=== PATIENT | female | born 1985 | race Caucasian/White ===

== ENCOUNTER 2021-09-20 09:24 | Inpatient (IN) | payer MEDICAID, SELFPAY ==
--- NOTE | 2021-09-17 07:18 | PCM.HP.BLA ---
History and Physical Date of Admission: 09/20/21 HPI: The patient is a 35 year old female presenting for pre-operative visit. She is scheduled for , for 09/20/21 . Procedure discussed along with risks, benefits and complications. Other alternatives discussed for management. Consent form signed? Yes. ? ? PAST MEDICAL HISTORY PAST MEDICAL HISTORY Diagnosis Date ? Anemia ? ? Asthma ? ? breast lumps ? ? cause by horse accident ? History of blood transfusion ? ? depression ? ? ? PAST SURGICAL HISTORY PAST SURGICAL HISTORY Procedure Laterality Date ? DELIVERY ONLY ? ? ? PAST SURGICAL HISTORY OF ? ? ? right knee x2 ? PAST SURGICAL HISTORY OF ? ? ? wisdom teeth ? PAST SURGICAL HISTORY OF ? ? ? ectopic (right) ? PAST SURGICAL HISTORY OF ? 07/03/2020 ? 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 ? ? CURRENT MEDICATIONS Current Outpatient Medications Medication Sig Dispense Refill ? Wnzkbppq-Ec-Osf-Fe-FA ( VITAMIN) tab Take 1 tablet by mouth. ? ? ? albuterol HFA (PROVENTIL HFA, VENTOLIN HFA) 90 mcg/actuation inhaler Inhale 2 Puffs as instructed. ? ? ? No current facility-administered medications for this visit. ? ? ALLERGIES: Aspirin, Morphine, Contact Metal Agent, and Macrobid [Nitrofurantoin Monohyd/M-Cryst] ? PERSONAL HISTORY: SOCIAL HISTORY Social History ? Tobacco Use ? Smoking status: Never Smoker ? Smokeless tobacco: Never Used Vaping Use ? Vaping Use: Never used Substance Use Topics ? Alcohol use: Not Currently ? Drug use: Never ? FAMILY HISTORY: FAMILY HISTORY FAMILY HISTORY Problem Relation Age of Onset ? other (brain tumor) Mother ? ? Hypertension Mother ? ? Diabetes Father ? ? No Known Problems Sister ? ? No Known Problems Sister ? ? No Known Problems Sister ? ? No Known Problems Sister ? ? No Known Problems Sister ? ? other (down syndrome) Sister ? ? No Known Problems Brother ? ? No Known Problems Brother ? ? Heart Maternal Grandmother ? ? Aneurysm Maternal Grandfather ? ? other (brain tumor and lung tumor) Maternal Grandfather ? ? No Known Problems Paternal Grandmother ? ? Heart Attack Paternal Grandfather ? ? other (amperforated anus) Son ? ? No Known Problems Son ? ? No Known Problems Son ? ? No Known Problems Son ? ? No Known Problems Daughter ? ? ? REVIEW OF SYMPTOMS: GENERAL: denies fevers or chills ENDOCRINOLOGY: has not been on steroids Cardiology : denies palpitations or chest pain Respiratory: denies SOB, has had mild cough for several weeks, improving, nonproductive Hematology: denies history of prolonged bleeding or easy bruising or VTE Allergy: Denies history of personal or family history of allergy to anesthesia ? PHYSICAL EXAMINATION: ? VITALS: Last menstrual period 12/29/2020. ? GENERAL: The patient is well nourished, well hydrated in no acute distress. , The patient is oriented to time, place, and person. NECK: Supple. No lynphadenopathy, normal thyroid, no thyromegaly. LUNGS: Clear to auscultation bilaterally. no wheezes, rhonchi or rales HEART: Regular rate and rhythm, Normal heart sounds and No murmurs or gallops ? IMPRESSION: Estimated Date of Delivery: 10/05/21 35 YOF w/ previous c/s nad previous vesico-cervical and vesicovaginal repari after last . ? PLAN: The risks/benefits/alternatives and personal involved for the planned repeat c/s were reviewed with the patient. Her questions were answered to her satisfaction and she desires to proceed. Consent was signed. I reviewed with her postop instructions and expectations.Proceeding at 37-38 weeks due to h/o rapid labor, previous repair of bladder injury to decrease risk of recurrent uterine rupture/bladder injury. We disucssed risks of early term delivery vs continuing and she desires to proceed. ? ? I have reviewed and updated past medical and surgical history, medications and allergies This H&P was completed in my office on 09/17/21 Assessment & Plan Assessment/Plan (1) 38 weeks gestation of : (2) High risk multigravida in third trimester: (3) Previous delivery affecting , antepartum: (4) with poor reproductive history in third trimester: (5) Advanced maternal age during in third trimester: (6) Grand multipara in labor in third trimester: (7) Maternal obesity syndrome in third trimester: (8) BMI 40.0-44.9, adult:
[2021-09-20] VITALS (13 sets, daily range): BP systolic 115–143; BP diastolic 53–87; PULSE 58–104; RESP 13–20; TEMP 36.1–36.9; O2SAT 98–100; BMI 42.3
[2021-09-20] MEDS: Lactated Ringers 1,000 ML 999 ML IV (10:25)
[2021-09-20] MEDS: Acetaminophen 500 MG Tablet 1000 MG PO ×3 (10:41→23:09)
[2021-09-20 10:47] LABS: Absolute Lymphocyte Count 1.39 X10^3/uL (0.83-4.51); Absolute Neutrophil Count 5.5 X10^3/uL (2.0-7.7); Basophil# 0.02 X10^3/uL; Basophil% 0.3 % (0-1); Eosinophil# 0.09 X10^3/uL; Eosinophils% 1.2 % (0-5); Hematocrit 34.4 % (37-47); Hemoglobin 11.5 g/dL (12.0-15.0); Lymphocyte # 1.39 X10^3/ul (0.83-4.51); Lymphocyte % 18.6 % (19-41); Mean Corp Hgb Conc 33.4 g/dL (32-36); Mean Corpuscular Hgb 30.7 pg (27.0-32.0); Mean Platelet Vol. 11.2 fl (6.2-12.0); Monocyte# 0.43 X10^3/uL; Monocyte% 5.7 % (0-10); NRBC Flagged by Analyzer 0 % (0-5); Neutrophil # 5.52 X10^3/uL (2.7-7.7); Neutrophil % 73.7 % (47-70); Platelet Count 245 K/mm3 (150-450); RBC Distribution Width CV 13.5 % (11.6-14.6); RBC Distribution Width SD 45.4 fl (35.1-43.9); Red Blood Count 3.74 M/mm3 (4.2-5.4); White Blood Count 7.5 K/mm3 (4.4-11.0)
[2021-09-20] MEDS: Lactated Ringers 1,000 ML 150 ML IV (11:26)
[2021-09-20] MEDS: Sodium Citrate/Citric Acid 30 ML UDC PO (11:40)
[2021-09-20] MEDS: Oxytocin 30 units/NS 500 ml 30 UNITS/500 ML IV.SOLN 167 UNITS IV (13:30)
[2021-09-20] MEDS: HYDROmorphone 1 MG/ML Syringe IV ×2 (14:12→20:25)
[2021-09-20] MEDS: 0.9% Saline Lock 10 ML Syringe IV (16:31)
[2021-09-20] MEDS: oxyCODONE 5 MG Tablet PO ×2 (17:56→23:17)
[2021-09-21 00:41] VITALS: BP 122/61; PULSE 78; RESP 18; TEMP 36.4
[2021-09-21] MEDS: HYDROmorphone 1 MG/ML Syringe IV ×2 (00:45→12:50)
[2021-09-21] MEDS: Enoxaparin 40 MG/0.4 ML Syringe SC ×3 (00:46→21:03)
[2021-09-21 03:50] VITALS: BP 120/70; PULSE 94; RESP 18
[2021-09-21] MEDS: Acetaminophen 500 MG Tablet 1000 MG PO ×4 (05:13→23:26)
[2021-09-21] MEDS: oxyCODONE 5 MG Tablet PO ×4 (05:13→21:03)
[2021-09-21 05:41] LABS: Hematocrit 33.5 % (37-47); Hemoglobin 10.8 g/dL (12.0-15.0); Mean Corp Hgb Conc 32.2 g/dL (32-36); Mean Corpuscular Hgb 30.3 pg (27.0-32.0); Mean Corpuscular Volume 93.8 fL (81-99); Mean Platelet Vol. 10.9 fl (6.2-12.0); Platelet Count 224 K/mm3 (150-450); RBC Distribution Width CV 13.8 % (11.6-14.6); RBC Distribution Width SD 46.9 fl (35.1-43.9); Red Blood Count 3.57 M/mm3 (4.2-5.4); White Blood Count 9.5 K/mm3 (4.4-11.0)
[2021-09-21 08:00] VITALS: BP 125/79; PULSE 104; RESP 16; TEMP 36.6; O2SAT 96
--- NOTE | 2021-09-21 09:31 | PCM.PN.OB ---
Subjective Subjective Pain moderately controlled, average lochia. No nausea or vomiting. Objective Data Objective Data Vital Signs: Vital Signs Temp Pulse Resp BP Pulse Ox 98 F 104 H 16 125/79 H 96 09/21/21 08:00 09/21/21 08:00 09/21/21 08:00 09/21/21 08:00 09/21/21 08:00 Oxygen Delivery Method Room Air Weight: 133.719 kg Body Mass Index (BMI) 42.3 Intake & Output: Intake and Output for Last 24 Hours 09/19/21 09/20/21 09/21/21 23:59 23:59 23:59 Intake Total 2300 / 2300 Output Total 450 / 450 600 / 600 Balance 1850 / 1850 -600 / -600 Lab / Micro Data Result Diagrams: 09/21/21 05:30 Labs: Laboratory Results - last 24 hr 09/20/21 10:25: WBC 7.5, RBC 3.74 L, Hgb 11.5 L, Hct 34.4 L, MCV 92.0, MCH 30.7, MCHC 33.4, RDW Std Deviation 45.4 H, RDW Coeff of Serenity 13.5, Plt Count 245, MPV 11.2, Immature Gran % (Auto) 0.500, Neut % (Auto) 73.7 H, Lymph % (Auto) 18.6 L, Parker % (Auto) 5.7, Eos % (Auto) 1.2, Baso % (Auto) 0.3, Absolute Neuts (auto) 5.5, Absolute Lymphs (auto) 1.39, Nucleated RBC % 0 09/20/21 10:25: Blood Type Cancelled, A1 Antigen Typing Cancelled, Rho(D) Type Cancelled, Antibody Screen Cancelled 09/20/21 11:38: Blood Type O POSITIVE, Antibody Screen NEGATIVE 09/21/21 05:30: WBC 9.5, RBC 3.57 L, Hgb 10.8 L, Hct 33.5 L, MCV 93.8, MCH 30.3, MCHC 32.2, RDW Std Deviation 46.9 H, RDW Coeff of Serenity 13.8, Plt Count 224, MPV 10.9 Physical Exam Const alert General Appearance: cooperative GI GI Narrative: soft, moderate distention, fundus firm, appropriately tender. Abdominal bandage clean dry and intact Assessment & Plan (1) delivery delivered: PLAN: Postoperative day #1 status post repeat section. Patient and are doing well. Discussed with patient symptomatic measures for pain control as she has multiple allergies to pain medications. Hemoglobin is stable, appropriate for blood loss during surgery. Routine care today. is breast-feeding and doing well.
[2021-09-21] MEDS: Senna/Docusate Sodium 1 Tablet PO (10:56)
[2021-09-21 12:45] VITALS: BP 129/77; PULSE 105; RESP 16; TEMP 36.6; O2SAT 95
[2021-09-21] MEDS: 0.9% Saline Lock 10 ML Syringe IV (12:49)
--- NOTE | 2021-09-21 14:44 | CASEMGMT ---
SUE Note SW met with patient in her room. Present in the room was the fob who was holding the . Patient gave this race and sports book writer permission to speak to her in the FOB's presence. Mom: Claudine Barker3 P 6 38 weeks PNC: Alex David, YOKASTA Control: Tubal Ligation Baby: Ara Noriega 09/20/21 Apgars : 8/9 Weight: 8 lbs and 7 ounces Finisher Fine Diamond Dies: Faby Burr Breast feeding. Patient reports that breast feeding is going well MOB's other children: Patient reports that she has 5 children at home ages 10,9,7,5,3 and that her sister is caring for the children while she and FOB are in the hospital. Housing: Patient and her and children reside on a small farm in [place]. Transportation: Patient reports she is able to drive and has access to a vehicle. Supplies: Patient reports she has a carseat, crib, clothes and diapers for the . Patient reports she has all the supplies Supports: Patient said that her family, 4 siblings, reside locally. Patient said that she and her and family moved from [place] to [place] 6 months ago. Patient said that this is the first time that she has had a baby with family around. Patient said that in [place] they had no support from his parents. Education Level: Patient reports she graduated from high school and was home schooled. Patient reports no learning issues or delays. 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 Agency Involvement: Patient said that they have [employer] insurance. Patient said that they did receive food stamps but there was so much paperwork involved with food stamps that they do not currently get food stamps. FOB said we are doing fine without them. MOB said we live on a small farm so we have chickens. Patient was educated on WIC and encouraged to contact them to learn about the program. Patient reports she did get phone nikko from [facility] and declined services stating I think I am doing well. Patient denied CPS, Counseling or legal issues. FOB: Alvin Jay Time Together: 12 years Involved at : FOB said that he will be involved with nb (he held nb during the whole interview) Employment: FOB works from home raising [employer] dogs. He reports he is available for patient and . FOJaime is father to the patient's 5 other children FOB denied MH/AOD/DV issues Maternal MH History: Patient and FOB were educated on PPD. Patient said that her PPD was related to her not having enough sleep and it would last from 1 to 1 1/2 days . Patient reports that when when she had symptoms the FOB would encourage her to sleep. Patient said that PPD was there but not severe. Patient said that the other issue was when they lived in [place] they had limited support. Patient said that she had symptoms with each of her children but it did not last long. Patient reports no previous medication for Post Depression. Patient reports no SI/HI and her PHQ score was 0. Patient was educated on shaken baby, Post depression and safe sleeping. Patient denied any drug or substance abuse history. SUE provided patient with handout on Post depression, information on HMG and PPD resources. No other concerns or issues voiced. SUE spoke to RN caring for the patient and she voiced no concerns. Plan: Home Valerie MAYNARD
[2021-09-21 20:56] VITALS: BP 120/77; PULSE 98; RESP 18; TEMP 37.2
[2021-09-22 02:26] VITALS: BP 125/71; PULSE 93; RESP 18; TEMP 36.7
[2021-09-22] MEDS: oxyCODONE 5 MG Tablet PO ×4 (02:31→16:06)
--- NOTE | 2021-09-22 04:53 | NUR.TO.PHY ---
0216: This RN in room, pt vitals taken. Pt refusing fundal checks at this time. Pt states I cant right now, that causes too much pain. I refuse. This RN educated the patient on the importance of fundal checks and she states her understanding. This RN was able to assess incision site and bleeding. Pt bleeding is appropriate, scant and no clots noted on pad. Incision dressing is dry and intact, VS good. Pt medicated per MAR at this time for pain.
[2021-09-22] MEDS: Acetaminophen 500 MG Tablet 1000 MG PO ×2 (05:50→11:08)
[2021-09-22 08:05] VITALS: BP 118/66; PULSE 98; RESP 14; TEMP 37.1; O2SAT 96
--- NOTE | 2021-09-22 08:13 | PCM.PN.OB ---
Subjective Subjective Pain well until she has to get up. Wanted to leave catheter in last night. Average lochia. No flatus. Tolerating regular diet. Denies nausea or vomiting. Objective Data Objective Data Vital Signs: Vital Signs Temp Pulse Resp BP Pulse Ox 98.1 F 93 18 125/71 H 95 09/22/21 02:26 09/22/21 02:26 09/22/21 02:26 09/22/21 02:26 09/21/21 12:45 Oxygen Delivery Method Room Air Weight: 133.719 kg Body Mass Index (BMI) 42.3 Intake & Output: Intake and Output for Last 24 Hours 09/20/21 09/21/21 09/22/21 23:59 23:59 23:59 Intake Total 2300 / 2300 Output Total 450 / 450 1950 / 2950 1900 / 1900 Balance 1850 / 1850 -1950 / -2950 -1900 / -1900 Lab / Micro Data Result Diagrams: 09/21/21 05:30 Physical Exam Const alert General Appearance: cooperative GI GI Narrative: soft, moderate distention, fundus firm, appropriately tender. Abdominal bandage clean dry and intact Assessment & Plan (1) delivery delivered: PLAN: Postoperative day #2 status post repeat section. Catheter removed. Encouraged ambulation. Discussed with her trying to limit narcotics to help decrease chance of ileus. Recommend stool softeners and push fluids. Patient desires discharge home today. If she can void, will DC home.
--- NOTE | 2021-09-22 08:16 | PCM.DC.SUM ---
Providers Date of Admission: 09/20/21 Primary Care Physician: Ema Primary Care Phys Reason For Visit: REPEAT C SECTION Diagnosis Discharge Diagnosis (1) delivery delivered: Status: Acute Code(s): O82 - Encounter for delivery without indication Medications at Discharge Home Medications [id number] 6-dha [Prena1] cap PO 09/20/21 docusate sodium [DOK] 100 mg PO BID PRN PRN 20 Days #60 capsule 09/22/21 hydromorphone [Dilaudid] 2 mg PO Q4H 7 Days #30 tab 09/22/21 Hospital Course Operations - (Repeat low transverse section performed on September 20, 2021) Procedures None Summary of Care Provided Hospital Course: Patient is a 35-year-old grand multiparity who presented for repeat section. section was performed without difficulty. By postoperative day #2 she was ambulating and tolerating regular diet. She was discharged home with prescription for Dilaudid. She cannot take NSAIDs. She is to follow-up in the office in 1 week or as needed. Weight / BMI Weight Weight: 133.719 kg Body Mass Index (BMI) 42.3 ABG / Lab / Microbiology Data Result Diagrams: 09/21/21 05:30 D/C Instructions Discharge Diet: No restrictions May resume sexual activity in: 4-6 weeks Lifting Restrictions: 20 pounds Additional Activity Instructions: Nothing in the vagina for 4-6 weeks. You may return to work/school in 6 weeks. Call your doctor if your incision/area has: Continuous Slow Oozing, Sudden Increased Bleeding, Increased Pain/ Swelling, Increased Redness and Foul Smelling Discharge Call your doctor if you observe: Fever of 101 or Higher and Using more than 1 pad per hour (for 2 hours) Suture Line Care: Avoid Pulling/Pushing and Avoid Pinching/Bending Cleanse incision/area with: Keep Dressing Clean & Dry Please Follow Up With: Berenice David MD When: Call to make an appointment for an incision check in 1-2 [phone]. You will need a post check in 6 weeks. Meaningful Use Info Meaningful Use Diagnoses (Choose all that apply): None applicable Discharge Plan Admission Admit Date/Time: 09/20/21 09:24 Primary Reason for Your Visit: Attending Provider: Frankie,Berenice Primary Care Provider: Care Physician,No Primary Discharge Orders/Prescriptions Prescriptions: New docusate sodium [DOK] 100 MG capsule 100 mg PO BID PRN PRN (Reason: constipation) 20 Days Qty: 60 RF: 1 hydromorphone [Dilaudid] 2 mg tablet 2 mg PO Q4H 7 Days Qty: 30 RF: 0 No Action Prena1 30 mg iron-1mg -200 mg Capsule PO RF: 0 Referrals / Follow Up: Care Physician,No Primary [Primary Care Provider] - Disposition Disposition (needs filled in before D/C Order can be placed): Home, Self Care
[2021-09-22] MEDS: Senna/Docusate Sodium 1 Tablet PO (11:09)
[2021-09-22] MEDS: Enoxaparin 40 MG/0.4 ML Syringe SC (13:06)
[2021-09-22 15:35] VITALS: BP 118/74; PULSE 95; RESP 14; TEMP 36.9
--- NOTE | 2021-09-25 11:53 | EX.PCM.OBRPT ---
Assessment & Plan (1) 37 weeks gestation of : (2) High risk multigravida in third trimester: (3) Previous delivery affecting , antepartum: (4) with poor reproductive history in third trimester: (5) Grand multipara in labor in third trimester: (6) Advanced maternal age during in third trimester: (7) Maternal obesity syndrome in third trimester: (8) BMI 40.0-44.9, adult: Maternal Data Information Final RUSTAM: 10/05/21 Gestational age: 37 6/7 Details Operative Information Date of Procedure: 09/20/21 Pre-Operative Diagnosis: previous c/s, previous vesicocervical and vesicovaginal fistula repair after last delivery Post-Operative Diagnosis: same Indications for : Repeat Elective Classification: Scheduled Procedure Type: low transverse grinder set up operator universal #1: Scarlett Obregon Type of Anesthesia: Spinal Anesthesiologist: Kodak Jones Special Medications: none Antibiotic Given: Ancef 3 grams IV x1 Drain: Sommer to straight drain Estimated Blood Loss: 900 Fluids Replaced: 1000 Procedure Start Time: 12:25 Procedure Stop Time: 13:05 Time of Delivery: 12:28 Findings Description of Procedure: The patient was taken to the operating room. She was prepped and draped in the dorsal supine position with a leftward tilt. A Pfannenstiel skin incision was made approximately 2 cm above the symphysis pubis and carried through to underlying layer fascia with the scalpel. The fascia was incised incised in the midline and extended laterally with the Wyatt scissors. The fascia was dissected off the rectus muscles with blunt and sharp dissection. The rectus muscles were in the midline and the peritoneum was entered bluntly. The peritoneal incision was stretched and the bladder blade was placed. The uterine incision was made in a low transverse fashion with the scalpel and extended superiorly and inferiorly with blunt dissection. The amniotic membranes were ruptured bluntly and clear amniotic fluid returned. Of note, there were no adhesions or abnormalities noted in the lower uterine segment or on the uterus. The infant's head was brought to the incision in the flexed position and delivered without difficulty. The remainder of the was delivered with gentle traction and fundal pressure in the standard fashion. The mouth and nares were bulb suctioned. The cord was clamped and cut as the infant was stimulated. Cord clamping was delayed. The infant was handed off to the waiting nursing staff. The placenta was delivered with fundal massage and gentle traction in the standard fashion. The uterus was exteriorized and cleared of all clots and debris. The uterine incision was closed with #1 Vicryl in a running locked fashion. A second layer of the same suture was used in an imbricating fashion. Several [id number] sutures were needed to obtain hemostasis due to some bleeding sinuses along the incision line. Some Abbie was placed over the incision. The incision was examined and was found to be hemostatic. The uterus was placed back into the peritoneal cavity and hemostasis was again confirmed. The rectus muscles were examined and any bleeding was Bovie cauterized. The parietal peritoneum and rectus muscles were closed en bloc with an 0 Vicryl running suture. The surgical teams outer gloves were then changed. The rectus fascia was examined and any bleeding was Bovie cauterized and the rectus fascia was closed with 0 PDS suture in a running standard fashion. The subcutaneous tissue was examining and any bleeding was Bovie cauterized. The subcutaneous tissue was reapproximated with 3-0 Vicryl suture. The skin was closed in a subcuticular fashion by the BENCH LATHE OPERATOR with me present in the labor and delivery suite. Abbie was placed over top the rectus muscles and in the subcutaneous layer as well. I performed the remainder of the procedure with assistance. All sponge, lap, and needle counts were correct. The patient was taken to her room for recovery in a stable condition. Presentation: Positive for Vertex Amniotic Membrane Rupture Type: Artificial Amniotic Fluid Description: Clear Placental Delivery Description: Expressed Placenta Disposition: [facility] Cord Vessel Description: 3 Vessels Cord Entanglement: None A Gender: Male (1 minute): 8 (5 minute): 9 Delayed Cord Clamping: Yes Complications Complications: none
== END 2021-09-22 16:25 | disposition home or self-care (01) | DRG 540 ==
PROVIDERS: Admitting Provider Obstetrics & Gynecology; Visit Provider Obstetrics & Gynecology
PROC: 10D00Z1 Extraction of Products of Conception, Low, Open Approach (ICD-10-PCS; CPT 59514; principal; 2021-09-20 11:45)
DX: O34.211 Maternal care for low transverse scar from previous cesarean delivery (principal); O99.52 Diseases of the respiratory system complicating childbirth; J45.909 Unspecified asthma, uncomplicated; O99.214 Obesity complicating childbirth; Z79.899 Other long term (current) drug therapy; Z3A.38 38 weeks gestation of pregnancy; Z37.0 Single live birth
CPT/HCPCS: 85025; 85027; 86850; 86900; 86901; 99218; J7120; A4216; G0378

== ENCOUNTER 2022-05-02 23:28 | Emergency (ER) | payer MEDICAID, SELFPAY ==
[2022-05-02 23:29] VITALS: BP 144/87; PULSE 97; RESP 16; TEMP 36.9; O2SAT 95; BMI 34.4
[2022-05-02 23:57] LABS: Mucous, Urine 0 SEEN /hpf (<or=2+); Red Blood Cells-Urine 0 SEEN /hpf (0-5)
[2022-05-03 00:07] LABS: Color, Urine Yellow (Yellow); Glucose, Dipstick Normal (Normal); Ketone-Dipstick Negative (Negative); Leukocyte Esterase-Dipstick 100 /ul (Negative); Nitrite-Dipstick Negative (Negative); Occult Blood-Urine Negative /ul (Negative); Protein-Dipstick Negative (Negative); Specific Gravity, Urine 1.015 (1.002-1.030); Urine Bilirubin Dipstick Negative (Negative); Urine Clarity Clear (Clear); Urine Urobilinogen Normal (Normal)
--- NOTE | 2022-05-03 00:15 | ED.RN ---
PT EXCLUSIVELY NURSES 7 MONTH OLD. THIS RN PROVIDED TRIAGE ROOM 2 TO NURSE BABY
[2022-05-03 00:22] LABS: Absolute Lymphocyte Count 1.98 X10^3/uL (0.83-4.51); Absolute Neutrophil Count 7.3 X10^3/uL (2.0-7.7); Basophil# 0.03 X10^3/uL; Basophil% 0.3 % (0-1); Hematocrit 39.3 % (37-47); Hemoglobin 13.4 g/dL (12.0-15.0); Lymphocyte # 1.98 X10^3/ul (0.83-4.51); Lymphocyte % 19.4 % (19-41); Mean Corp Hgb Conc 34.1 g/dL (32-36); Mean Corpuscular Hgb 29.6 pg (27.0-32.0); Mean Corpuscular Volume 86.8 fL (81-99); Mean Platelet Vol. 10.7 fl (6.2-12.0); Monocyte# 0.73 X10^3/uL; Monocyte% 7.2 % (0-10); NRBC Flagged by Analyzer 0 % (0-5); Neutrophil # 7.34 X10^3/uL (2.7-7.7); Neutrophil % 71.9 % (47-70); Platelet Count 242 K/mm3 (150-450); RBC Distribution Width CV 13.1 % (11.6-14.6); RBC Distribution Width SD 41.1 fl (35.1-43.9); Red Blood Count 4.53 M/mm3 (4.2-5.4); White Blood Count 10.2 K/mm3 (4.4-11.0)
[2022-05-03 00:32] LABS: Bacteria 2+ /hpf (None Seen); Squamous Epithelial Cells - UA 5-10 SEEN /hpf (5-10); White Blood Cells 10-25 SEEN /hpf (0-5)
[2022-05-03 00:34] LABS: Anion Gap 6 (5-15); BUN 16 mg/dL (7-18); BUN/Creat Ratio 15.1 RATIO (10-20); Calcium,Total 9.1 mg/dL (8.5-10.1); Chloride 106 mmol/L (98-107); Creatinine, Serum 1.06 mg/dL (0.55-1.02); EST Glomerular Filtration Rate 62 mL/min (>60); Est Glom Filt Rate - Afr Amer 75 mL/min (>60); Estimated Creatinine Clearance 78.58 ml/min; Glucose 99 mg/dL (74-106); Sodium Level 138 mmol/L (136-145)
[2022-05-03 00:57] LABS: Internal QC Validated? YES +Cl - CLEAR BKGD; Pregnancy, Serum, hCG Quali. NEGATIVE Negative
[2022-05-03] MEDS: 0.9% Normal Saline 1,000 ML 999 ML IV (01:41)
[2022-05-03] MEDS: Ondansetron 4 MG/2 ML Vial IV (01:41)
--- NOTE | 2022-05-03 01:52 | CT_ITS ---
STUDY: CT ABDOMEN AND PELVIS WITH CONTRAST REASON FOR EXAM: Female, 36 years old. RLQ pain RADIATION DOSAGE (If Supplied By Facility): CTDIvol = ( 19.22 ) mGy, DLP = ( 1199.74 ) mGycm TECHNIQUE: Transaxial images were obtained from the dome of the diaphragm to the symphysis pubis without oral contrast. IV 100mL Isovue-370 was administered. Sagittal and coronal images were reconstructed. Individualized dose optimization techniques were used for this CT. COMPARISON: None. FINDINGS: LOWER CHEST: Dependent groundglass opacities at the lung bases. LIVER: Normal. GALLBLADDER/BILE DUCTS: Normal. PANCREAS: Normal. SPLEEN: Normal. ADRENAL GLANDS: Normal. KIDNEYS/URETERS/BLADDER: Normal. RETROPERITONEUM/AORTA: Normal. BOWEL/MESENTERY: Mild increased stool. No bowel dilatation or bowel wall thickening.. APPENDIX: Identified and normal. PERITONEUM: Normal. REPRODUCTIVE ORGANS: Normal. BONES/SOFT TISSUES: Varices in the bilateral groin, right greater than left. Bilateral L5 pars defects. No acute osseous abnormality.. OTHER: None. CT/Abdomen/Pelvis W IV Cont ONLY IMPRESSION: 1. Normal appendix. 2. No bowel dilatation or bowel wall thickening. 3. Mild increased stool. Electronically Signed: Adolfo Madrid MD at 2:16 EDT ,
[2022-05-03 02:03] LABS: AST(SGOT) 25 U/L (15-37); Alanine Aminotransfer ALT/SGPT 22 U/L (13-56); Alkaline Phosphatase 127 U/L (45-117); Bilirubin, Direct 0.16 mg/dL (0.00-0.30); Globulin 4.1 g/dL (2.2-4.2); Lipase 133 U/L (73-393); Protein, Total 8.1 g/dL (6.4-8.2)
[2022-05-03 02:20] LABS: Lactic Acid 0.6 mmol/L (0.4-1.9)
[2022-05-03 03:19] VITALS: RESP 18
--- NOTE | 2022-05-03 03:46 | EX.ED.DYSGE1 ---
HPI History of Present Illness Chief Complaint: Abd Pain Narrative Narrative: Patient is a 36-year-old female who reports that she has had generalized abdominal discomfort that is worsened throughout the day. She denies any fevers or chills she denies any recent trauma or excessive activity. She states that despite taking [id number] medications and giving the symptoms time to improve there is been only worsening of her pain and secondary to this she presents for evaluation [facility] Medical History (Updated 05/03/22 @ 03:[address] 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 Home Medications vit 25-iron fum 30 mg iron-folate no6 1 mg-dha 200 mg capsule 1 cap PO DAILY 09/20/21 [History Last Taken Unknown] Allergy/AdvReac Type Severity Reaction Status Date / Time aspirin Allergy Anaphylaxis Verified 05/02/22 23:33 diphenhydramine Allergy Other Verified 05/02/22 23:33 [From Benadryl] morphine Allergy Hives Verified 05/02/22 23:33 nitrofurantoin Allergy Inflammation Verified 05/02/22 23:33 [From Macrobid] of vein Surgical History (Updated 09/30/21 @ 00:00 by Background Daemon) History of gynecologic surgery History of surgery Previous section Social History Smoking Status: Never smoker ROS ROS ED Constitutional Constitutional ED: Denies chills or fever(s) ENT ENT ED: Denies sore throat Cardiovascular Cardiovascular: Denies chest pain Respiratory/Chest Respiratory/Chest: Denies cough or dyspnea Gastrointestinal Gastrointestinal: Reports abdominal pain and nausea; Denies diarrhea or vomiting Genitourinary Genitourinary ED: Denies dysuria Musculoskeletal Musculoskeletal: Denies myalgias Integumentary Denies rash Neurologic Neurologic: Denies headache(s) Hematologic/Lymphatic Hematologic/Lymphatic: Denies easy bleeding or easy bruising EXAM Physical Exam Const Vital Signs: 05/02/22 23:29 05/03/22 03:19 Temperature 98.5 F Temperature Source Temporal Pulse Rate 97 Respiratory Rate 16 18 Blood Pressure 144/87 H Blood Pressure Mean 106 Pulse Ox 95 Oxygen Delivery Method Room Air Positive well nourished and well developed General Appearance ED: well developed HEENT Reports moist mucous membranes Eyes PERRL and EOMs intact bilaterally Neck supple Resp normal respiratory effort and clear to auscultation bilaterally Cardio regular rate and regular rhythm Rate: other Other Details: Radial pulses are plus 2 out of 4 bilaterally are equal and symmetric GI non-distended GI Narrative: Abdomen is soft and nondistended with normoactive bowel sounds. There is diffuse pain on palpation without voluntary guarding or rigidity. No pulsatile mass or fluid wave noted Auscultation: normoactive bowel sounds Palpation: soft Back/Spine no CVA tenderness Extremity normal to inspection Neuro oriented x3 and CN's II-XII intact bilaterally Sensorium / Orientation: alert Psych mental status grossly normal Skin no rashes or lesions noted MDM MDM MDM Narrative Medical decision making narrative: Patient presented to the ER afebrile with a soft nonsurgical abdomen. However with her increasing pain there was concern for underlying intestinal infection and therefore basic labs and a CT scan were obtained. Labs and imaging study revealed no acute findings. On reevaluation her abdomen remains soft and nonsurgical and with medication ER patient's pain has resolved. Therefore at this time with improvement of pain as well as negative blood work and imaging studies I do not feel there is need for admission and patient is otherwise safe for discharge Lab Data Attestation: I reviewed the patient's lab results. Labs: Laboratory Results - last 24 hr 05/02/22 05/03/22 05/03/22 23:40 00:01 00:01 WBC RBC Hgb Hct MCV MCH MCHC RDW Std Deviation RDW Coeff of Serenity Plt Count MPV Immature Gran % (Auto) Neut % (Auto) Lymph % (Auto) [place] % (Auto) Eos % (Auto) Baso % (Auto) Absolute Neuts (auto) Absolute Lymphs (auto) Nucleated RBC % Sodium 138 Potassium 4.0 Chloride 106 Carbon Dioxide 26.0 Anion Gap 6 BUN 16 Creatinine 1.06 H Estim Creat Clear Calc 78.58 Est GFR (MDRD) Af Amer 75 Est GFR (MDRD) Non-Af 62 BUN/Creatinine Ratio 15.1 Glucose 99 Lactic Acid Calcium 9.1 Total Bilirubin Direct Bilirubin AST ALT Alkaline Phosphatase Total Protein Albumin Globulin Lipase Serum , Qual NEGATIVE Urine Color Yellow Urine Clarity Clear Urine pH 6.0 Ur Specific [place] 1.015 Urine Protein Negative Urine Glucose (UA) Normal Urine Ketones Negative Urine Occult Blood Negative Urine Nitrite Negative Urine Bilirubin Negative Urine Urobilinogen Normal Ur Leukocyte Esterase 100 H Urine RBC 0 SEEN Urine WBC 10-25 SEEN Ur Squamous Epith Cells 5-10 SEEN Urine Bacteria 2+ Urine Mucus 0 SEEN 05/03/22 05/03/22 05/03/22 00:01 00:07 01:35 WBC 10.2 RBC 4.53 Hgb 13.4 Hct 39.3 MCV 86.8 MCH 29.6 MCHC 34.1 RDW Std Deviation 41.1 RDW Coeff of Serenity 13.1 Plt Count 242 MPV 10.7 Immature Gran % (Auto) 0.200 Neut % (Auto) 71.9 H Lymph % (Auto) 19.4 [place] % (Auto) 7.2 Eos % (Auto) 1.0 Baso % (Auto) 0.3 Absolute Neuts (auto) 7.3 Absolute Lymphs (auto) 1.98 Nucleated RBC % 0 Sodium Potassium Chloride Carbon Dioxide Anion Gap BUN Creatinine Estim Creat Clear Calc Est GFR (MDRD) Af Amer Est GFR (MDRD) Non-Af BUN/Creatinine Ratio Glucose Lactic Acid 0.6 Calcium Total Bilirubin 0.90 Direct Bilirubin 0.16 AST 25 ALT 22 Alkaline Phosphatase 127 H Total Protein 8.1 Albumin 4.0 Globulin 4.1 Lipase 133 Serum , Qual Urine Color Urine Clarity Urine pH Ur Specific [place] Urine Protein Urine Glucose (UA) Urine Ketones Urine Occult Blood Urine Nitrite Urine Bilirubin Urine Urobilinogen Ur Leukocyte Esterase Urine RBC Urine WBC Ur Squamous Epith Cells Urine Bacteria Urine Mucus Radiography Diagnostic Testing: Clinical Impression(s) from Imaging Studies Abdomen/Pelvis CT 05/03/22 01:52 IMPRESSION: 1. Normal appendix. 2. No bowel dilatation or bowel wall thickening. 3. Mild increased stool. Electronically Signed: Adolfo Madrid MD at 2:16 EDT , Discharge Plan Triage Chief Complaint: Abd Pain ED Provider: True Orellana Dx/Rx/DC Orders Clinical Impression: Nonspecific abdominal pain Instructions: Abdominal Pain Prescriptions: No Action Prena1 30 mg iron-1mg -200 mg Capsule 1 cap PO DAILY Primary Care Provider: Care Physician,No Primary Referrals: Walter Puri MD [Med Staff - [employer]] - 3-5 Days if not improving Care Physician,No Primary [Primary Care Provider] - Disposition Disposition: Home, Self Care Discharge Date/Time: 05/03/22 04:03
[2022-05-03 04:03] VITALS: BP 121/74; PULSE 84; RESP 17; O2SAT 96
== END 2022-05-03 04:03 | disposition home or self-care (01) ==
PROVIDERS: Emergency Provider Emergency Medicine; Visit Provider Emergency Medicine
DX: R10.84 Generalized abdominal pain (principal); R11.0 Nausea
CPT/HCPCS: 74177; 80048; 80076; 81001; 83605; 83690; 84703; 85025; 87077; 87086; 87088; 87186; 96361; 96374; 96375; 99283; J7030; Q9967; A4216; J2405

== ENCOUNTER 2023-03-19 12:21 | Emergency (ER) | payer MEDICAID, SELFPAY ==
[2023-03-19 12:23] VITALS: BP 122/72; PULSE 114; RESP 18; TEMP 36.3; O2SAT 100; BMI 40.4
--- NOTE | 2023-03-19 13:02 | EX.ED.DYSGE1 ---
HPI History of Present Illness Chief Complaint: Fever Informant: patient Narrative Narrative: Patient's been having fevers, this is day #3. She states she has been taking Tylenol about every 4 hours to keep them down, they respond temporarily, fevers have been as high as 103. When her fever breaks after the Tylenol, then she does have some sweating. She is about [address] David and has had no issues. She has 6 kids at home and none of them are sick and she has had no other sick contacts that she knows of, and has not traveled out of the area recently. She has had some occasional upper abdominal discomforts that feels like gas pain that are transient, occasionally go up into her chest but are also transient and without any dyspnea, cough, sore throat, earache, runny nose or congestion, headaches, myalgias, or acute urinary symptoms although she has had urinary frequency during this . 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 Home Medications vit 25-iron fum 30 mg iron-folate no6 1 mg-dha 200 mg capsule 1 cap PO DAILY 09/20/21 [History Last Taken Unknown] cephalexin 500 mg capsule 500 mg PO TID 7 days #21 CAPSULES 03/19/23 [Rx Last Taken Unknown] Allergy/AdvReac Type Severity Reaction Status Date / Time aspirin Allergy Anaphylaxis Verified 05/02/22 23:33 diphenhydramine Allergy Other Verified 05/02/22 23:33 [From Benadryl] morphine Allergy Hives Verified 05/02/22 23:33 nitrofurantoin Allergy Inflammation Verified 05/02/22 23:33 [From Macrobid] of vein Surgical History (Updated 09/30/21 @ 00:00 by Background Daemon) History of gynecologic surgery History of surgery Previous section Social History Smoking Status: Never smoker ROS ROS ED Constitutional Constitutional ED: Reports chills, fever(s) and sweats Eyes Eyes: Denies change in vision or diplopia ENT ENT ED: Denies rhinorrhea or sore throat Cardiovascular Cardiovascular: Denies chest pain or palpitations Respiratory/Chest Respiratory/Chest: Denies cough or dyspnea Gastrointestinal Gastrointestinal: Reports as per HPI and abdominal pain; Denies diarrhea, nausea or vomiting Genitourinary Genitourinary ED: Reports urinary frequency; Denies dysuria or hematuria Musculoskeletal Musculoskeletal: Denies back pain or neck pain Integumentary Denies abscess or rash Neurologic Neurologic: Denies headache(s), paresthesias or weakness Psychiatric Psychiatric: Denies anxiety or suicidal thoughts EXAM Physical Exam Const Vital Signs: 03/19/23 12:23 03/19/23 12:36 03/19/23 13:30 Temperature 97.4 F L 98.8 F Temperature Source Temporal Oral Pulse Rate 114 H Respiratory Rate 18 Respiratory Effort Normal Non-Labored Blood Pressure 122/72 H Blood Pressure Mean 88 Pulse Ox 100 Oxygen Delivery Method Room Air Positive well nourished and well developed Constitutional Narrative: Well-appearing, pleasant, conversive in full sentences General Appearance ED: well developed and NAD HEENT Reports moist mucous membranes normocephalic and atraumatic Eyes PERRL and EOMs intact bilaterally Neck full ROM, no lymphadenopathy and supple Resp normal respiratory effort and clear to auscultation bilaterally Cardio regular rate, regular rhythm and no murmurs GI non-tender and non-distended Auscultation: normoactive bowel sounds Palpation: soft Back/Spine no CVA tenderness General Back: other FROM Extremity normal to inspection General Extremety ED: Negative for edema, pulses abnormal or tenderness General Extremity: Negative for edema or pulses abnormal Neuro oriented x3, CN's II-XII intact bilaterally and no sensory deficits noted Sensorium / Orientation: awake and alert Motor Exam: strength 5/5 throughout Skin no rashes or lesions noted and no wounds MDM MDM MDM Narrative Medical decision making narrative: I think reasonable to check a urine, in addition to COVID and influenza swabs which were done, I also discussed getting a two-view chest x-ray while shielding her abdomen which is extremely low risk with regards to radiation exposure, the patient declines this, I think that is reasonable I was just trying to rule out other bacterial etiologies of her fever especially if she had some fleeting chest discomfort, which she understands. I do think she is not likely to have pneumonia right now, her pulse ox is 100 on room air and her lungs are clear and she denies any cough or dyspnea. COVID and influenza swabs are negative, her urine shows positive nitrite and leukocyte esterase along with pyuria, although there are equivalent number of squamous epithelial cells. I think it is worth treating given her urinary frequency, I will send a culture, she is allergic to nitrofurantoin apparently so I will start her on cephalexin the next best option according to her allergy list, it is compatible with that. Clinically do not suspect pyelonephritis so I think outpatient treatment is reasonable. Follow-up advised. Lab Data Attestation: I reviewed the patient's lab results. Labs: Laboratory Results - last 24 hr 03/19/23 13:15 Urine Color Yellow Urine Clarity Sl. Cloudy Urine pH 6.5 Ur Specific [place] 1.015 Urine Protein 100 H Urine Glucose (UA) Normal Urine Ketones 150 A* Urine Occult Blood 10 H Urine Nitrite Positive H Urine Bilirubin 1 H Urine Urobilinogen 8 H Ur Leukocyte Esterase 100 H Urine RBC 0-5 SEEN Urine WBC 10-25 SEEN Ur Squamous Epith Cells 10-25 SEEN Urine Bacteria 1+ Urine Mucus 0 SEEN Discharge Plan Triage Chief Complaint: Fever Other Complaint: Weakness ED Provider: [place] Major Dx/Rx/DC Orders Clinical Impression: UTI in , Fever Instructions: ED Cystitis Female Adult Prescriptions: New cephalexin [cephalexin] 500 mg capsule 500 mg PO TID 7 Days Qty: 21 0RF No Action Prena1 30 mg iron-1mg -200 mg Capsule 1 cap PO DAILY Primary Care Provider: Care Physician,No Primary Referrals: Berenice David MD [Med Staff - Active Staff] - 3-5 Days if not improving Care Physician,No Primary [Primary Care Provider] - Disposition Disposition: Home, Self Care Discharge Date/Time: 03/19/23 14:29
[2023-03-19 13:30] VITALS: TEMP 37.1
[2023-03-19 13:38] LABS: Mucous, Urine 0 SEEN /hpf (<or=2+)
[2023-03-19 13:48] LABS: Color, Urine Yellow (Yellow); Glucose, Dipstick Normal (Normal); Leukocyte Esterase-Dipstick 100 /ul (Negative); Nitrite-Dipstick Positive (Negative); Occult Blood-Urine 10 /ul (Negative); Protein-Dipstick 100 mg/dl (Negative); Specific Gravity, Urine 1.015 (1.002-1.030); Urine Bilirubin Dipstick 1 mg/dL (Negative); Urine Clarity Sl. Cloudy (Clear); Urine Urobilinogen 8 mg/dl (Normal); Urine pH 6.5 (5.0 - 8.0)
[2023-03-19 13:50] LABS: Ketone-Dipstick 150 mg/dl (Negative)
[2023-03-19 14:05] LABS: Bacteria 1+ /hpf (None Seen); Red Blood Cells-Urine 0-5 SEEN /hpf (0-5); Squamous Epithelial Cells - UA 10-25 SEEN /hpf (5-10); White Blood Cells 10-25 SEEN /hpf (0-5)
[2023-03-19] MEDS: Cephalexin 250 MG Capsule 500 MG PO (14:21)
== END 2023-03-19 14:29 | disposition home or self-care (01) ==
PROVIDERS: Emergency Provider Emergency Medicine; Visit Provider Emergency Medicine
DX: O23.42 Unspecified infection of urinary tract in pregnancy, second trimester (principal); O09.512 Supervision of elderly primigravida, second trimester; O99.891 Other specified diseases and conditions complicating pregnancy; R82.81 Pyuria; R35.0 Frequency of micturition; Z3A.24 24 weeks gestation of pregnancy
CPT/HCPCS: 81001; 87086; 87088; 87428; 99283

== ENCOUNTER 2023-03-20 16:46 | Emergency (ER) | payer MEDICAID, SELFPAY ==
[2023-03-20 16:48] VITALS: BP 114/59; PULSE 100; RESP 19; TEMP 36.9; O2SAT 100
[2023-03-20] MEDS: 0.9% Normal Saline 1,000 ML 1000 ML IV (18:14)
[2023-03-20 18:20] LABS: Mucous, Urine 0 SEEN /hpf (<or=2+); Red Blood Cells-Urine 0 SEEN /hpf (0-5)
[2023-03-20 18:23] LABS: Absolute Neutrophil Count 7.8 X10^3/uL (2.0-7.7); Basophil# 0.02 X10^3/uL; Basophil% 0.2 % (0-1); Hematocrit 37.1 % (37-47); Hemoglobin 12.2 g/dL (12.0-15.0); Lymphocyte % 6.9 % (19-41); Mean Corp Hgb Conc 32.9 g/dL (32-36); Mean Corpuscular Hgb 30.1 pg (27.0-32.0); Mean Corpuscular Volume 91.6 fL (81-99); Mean Platelet Vol. 9.9 fl (6.2-12.0); Monocyte# 0.31 X10^3/uL; Monocyte% 3.5 % (0-10); NRBC Flagged by Analyzer 0 % (0-5); Neutrophil # 7.76 X10^3/uL (2.7-7.7); Neutrophil % 88.7 % (47-70); POSITIVE DIFFERENTIAL YES; Platelet Count 262 K/mm3 (150-450); RBC Distribution Width CV 13.8 % (11.6-14.6); Red Blood Count 4.05 M/mm3 (4.2-5.4); White Blood Count 8.8 K/mm3 (4.4-11.0)
[2023-03-20 18:27] LABS: Color, Urine Yellow (Yellow); Glucose, Dipstick Normal (Normal); Ketone-Dipstick Negative (Negative); Leukocyte Esterase-Dipstick 100 /ul (Negative); Nitrite-Dipstick Negative (Negative); Occult Blood-Urine Negative /ul (Negative); Protein-Dipstick 30 mg/dl (Negative); Specific Gravity, Urine 1.005 (1.002-1.030); Urine Bilirubin Dipstick Negative (Negative); Urine Clarity Clear (Clear); Urine Urobilinogen Normal (Normal); Urine pH 6.5 (5.0 - 8.0)
[2023-03-20 18:30] LABS: Differential Indicated SCAN CRITERIA MET
[2023-03-20 18:35] LABS: International Normalized Ratio 1.1; Prothrombin Time (Protime)PT. 14.1 SECONDS (11.7-14.9)
[2023-03-20 18:36] LABS: Partial Thromboplast Time 34.1 Seconds (24.1-36.2)
[2023-03-20 18:44] LABS: Squamous Epithelial Cells - UA 5-10 SEEN /hpf (5-10)
[2023-03-20 18:45] LABS: Bacteria 1+ /hpf (None Seen); White Blood Cells 5-10 SEEN /hpf (0-5)
[2023-03-20 18:50] LABS: ALB/GLOB Ratio 0.5 RATIO (0.9-2.4); AST(SGOT) 45 U/L (15-37); Alanine Aminotransfer ALT/SGPT 32 U/L (13-56); Albumin, Serum 2.5 g/dL (3.2-5.0); Alkaline Phosphatase 223 U/L (45-117); Anion Gap 8 (5-15); BUN 8 mg/dL (7-18); BUN/Creat Ratio 8.8 RATIO (10-20); Calcium,Total 9.2 mg/dL (8.5-10.1); Chloride 101 mmol/L (98-107); Creatinine, Serum 0.91 mg/dL (0.55-1.02); EST Glomerular Filtration Rate 74 mL/min (>60); Est Glom Filt Rate - Afr Amer 89 mL/min (>60); Globulin 5.3 g/dL (2.2-4.2); Glucose 116 mg/dL (74-106); Potassium 3.3 mmol/L (3.5-5.1); Protein, Total 7.8 g/dL (6.4-8.2); Sodium Level 132 mmol/L (136-145)
[2023-03-20 19:00] LABS: Differential Comment SCANNED
--- NOTE | 2023-03-20 19:02 | EX.ED.DYSGE1 ---
HPI History of Present Illness Chief Complaint: Fever Informant: patient Onset/Context/Timing Onset: Days (4) Context: Sudden Onset Timing: Continuous Quality: Dull Location: Abdomen Worsened by: Nothing Relieved by: Tylenol Narrative Narrative: Patient presents with fever that has been constant for the last 4 days. Patient states he goes down with Tylenol but always comes back. Patient was seen here yesterday and was diagnosed with a urinary tract infection. Patient states she has been on antibiotics for the past 24 hours but states her temperature was up to 103.2 at home today. Patient states he has had an episode of some double vision but denies any other visual changes. Patient admits to some pain in her abdomen. Patient admits to a rash on her back. Patient also admits to a mild headache. Patient states she contacted her [employer] TE[employer]ER who recommended she come back to the emergency department for further evaluation and to rule out toxemia of . 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 Home Medications vit 25-iron fum 30 mg iron-folate no6 1 mg-dha 200 mg capsule 1 cap PO DAILY 09/20/21 [History Last Taken Unknown] cephalexin 500 mg capsule 500 mg PO TID 7 days #21 CAPSULES 03/19/23 [Rx Last Taken Unknown] Allergy/AdvReac Type Severity Reaction Status Date / Time aspirin Allergy Anaphylaxis Verified 03/20/23 16:50 diphenhydramine Allergy Other Verified 03/20/23 16:50 [From Benadryl] morphine Allergy Hives Verified 03/20/23 16:50 nitrofurantoin Allergy Inflammation Verified 03/20/23 16:50 [From Macrobid] of vein Surgical History History of gynecologic surgery History of surgery Previous section Social History Smoking Status: Never smoker ROS ROS ED Constitutional Constitutional ED: Reports fever(s); Denies chills Eyes Eyes: Reports diplopia; Denies blurry vision ENT ENT ED: Denies rhinorrhea or sore throat Cardiovascular Cardiovascular: Denies chest pain or palpitations Respiratory/Chest Respiratory/Chest: Denies cough or dyspnea Gastrointestinal Gastrointestinal: Reports abdominal pain; Denies nausea or vomiting Genitourinary Genitourinary ED: Denies dysuria or hematuria Musculoskeletal Musculoskeletal: Denies back pain or neck pain Integumentary Reports rash; Denies abscess Neurologic Neurologic: Reports headache(s); Denies weakness Allergic/Immunologic Allergic/Immunologic ED: Denies mouth swelling or urticaria EXAM Physical Exam Const Vital Signs: 03/20/23 16:48 03/20/23 18:02 Temperature 98.4 F Temperature Source Temporal Pulse Rate 100 Respiratory Rate 19 H Respiratory Effort Normal Non-Labored Respiratory Pattern Normal Blood Pressure 114/59 L Blood Pressure Mean 77 Pulse Ox 100 Oxygen Delivery Method Room Air Positive well nourished and well developed General Appearance ED: well developed and NAD HEENT Reports moist mucous membranes Neck supple and no JVD Resp normal respiratory effort and clear to auscultation bilaterally Cardio regular rate, regular rhythm and no murmurs GI normal to inspection, nondistended, normoactive bowel sounds and non-tender; Negative for hepatosplenomegaly Palpation: soft Extremity normal to inspection General Extremety ED: Negative for edema or tenderness General Extremity: Negative for edema Neuro oriented x3, CN's II-XII intact bilaterally and no sensory deficits noted Sensorium / Orientation: alert Motor Exam: strength 5/5 throughout Psych mental status grossly normal Skin no rashes or lesions noted MDM MDM MDM Narrative Medical decision making narrative: Differential diagnosis includes urinary tract infection, pyelonephritis, gastroenteritis, viral illness, and toxemia of . CBC will be obtained to assess for leukocytosis and anemia. Comprehensive metabolic profile will be obtained to assess for hepatic function, renal function, and electrolyte abnormality. PT was INR and PTT will be obtained to assess for coagulopathy. Urinalysis will be obtained to assess for urinary tract infection. Since the patient does not have any cough or respiratory complaints, I do not think this is from a pneumonia. Patient had negative COVID-19 and influenza antigens yesterday. I do not think these need to be repeated again today. History & Record Review Additional record(s) reviewed:: Prior ED visit and Prior labs Lab Data Attestation: I reviewed the patient's lab results. Lab results narrative: CBC was reviewed and was within normal limits. PT with INR and PTT were reviewed and were within normal limits. Comprehensive metabolic profile was reviewed. Sodium was slightly low at 132 and potassium was slightly low at 3.3. Alkaline phosphatase was mildly elevated at 223. AST was reviewed and was slightly elevated at 45. Urinalysis was reviewed. Leukocyte esterase was 100 with 5-10 white blood cells and 5-10 epithelial cells. There is 1+ bacteria. This is actually improved compared to yesterday urinalysis. Labs: Laboratory Results - last 24 hr 03/20/23 03/20/23 03/20/23 18:15 18:15 18:15 WBC 8.8 RBC 4.05 L Hgb 12.2 Hct 37.1 MCV 91.6 MCH 30.1 MCHC 32.9 RDW Std Deviation 47.0 H RDW Coeff of Serenity 13.8 Plt Count 262 MPV 9.9 Immature Gran % (Auto) 0.700 Neut % (Auto) 88.7 H Lymph % (Auto) 6.9 L [place] % (Auto) 3.5 Eos % (Auto) 0.0 Baso % (Auto) 0.2 Absolute Neuts (auto) 7.8 H Absolute Lymphs (auto) 0.60 L Nucleated RBC % 0 Differential Comment SCANNED PT 14.1 INR 1.1 APTT 34.1 Sodium 132 L Potassium 3.3 L Chloride 101 Carbon Dioxide 23.0 Anion Gap 8 BUN 8 Creatinine 0.91 Est GFR (MDRD) Af Amer 89 Est GFR (MDRD) Non-Af 74 BUN/Creatinine Ratio 8.8 L Glucose 116 H Calcium 9.2 Total Bilirubin 0.70 AST 45 H ALT 32 Alkaline Phosphatase 223 H Total Protein 7.8 Albumin 2.5 L Globulin 5.3 H Albumin/Globulin Ratio 0.5 L Urine Color Urine Clarity Urine pH Ur Specific [place] Urine Protein Urine Glucose (UA) Urine Ketones Urine Occult Blood Urine Nitrite Urine Bilirubin Urine Urobilinogen Ur Leukocyte Esterase Urine RBC Urine WBC Ur Squamous Epith Cells Urine Bacteria Urine Mucus 03/20/23 18:15 WBC RBC Hgb Hct MCV MCH MCHC RDW Std Deviation RDW Coeff of Serenity Plt Count MPV Immature Gran % (Auto) Neut % (Auto) Lymph % (Auto) [place] % (Auto) Eos % (Auto) Baso % (Auto) Absolute Neuts (auto) Absolute Lymphs (auto) Nucleated RBC % Differential Comment PT INR APTT Sodium Potassium Chloride Carbon Dioxide Anion Gap BUN Creatinine Est GFR (MDRD) Af Amer Est GFR (MDRD) Non-Af BUN/Creatinine Ratio Glucose Calcium Total Bilirubin AST ALT Alkaline Phosphatase Total Protein Albumin Globulin Albumin/Globulin Ratio Urine Color Yellow Urine Clarity Clear Urine pH 6.5 Ur Specific [place] 1.005 Urine Protein 30 H Urine Glucose (UA) Normal Urine Ketones Negative Urine Occult Blood Negative Urine Nitrite Negative Urine Bilirubin Negative Urine Urobilinogen Normal Ur Leukocyte Esterase 100 H Urine RBC 0 SEEN Urine WBC 5-10 SEEN Ur Squamous Epith Cells 5-10 SEEN Urine Bacteria 1+ Urine Mucus 0 SEEN Treatment and Re-Evaluation :: Urine culture results from yesterday were reviewed. There are mixed gram-positive organisms. This should be covered by the Keflex that was prescribed for her. Since the urinalysis is improving, I feel that continuing her Keflex will be the best course of treatment. Patient was instructed to continue Tylenol and ibuprofen as needed for fevers. Patient was instructed to drink plenty of fluids. Patient was instructed to follow-up with her [employer] TE[employer]ER in 3 to 5 days. Patient understood and was agreeable with the plan. All questions were answered. Discharge Plan Triage Chief Complaint: Fever ED Provider: Dashawn Batista Dx/Rx/DC Orders Clinical Impression: UTI in , Fever Instructions: ED Cystitis Female Adult Prescriptions: No Action Prena1 30 mg iron-1mg -200 mg Capsule 1 cap PO DAILY cephalexin [cephalexin] 500 mg capsule 500 mg PO TID 7 Days Qty: 21 0RF Primary Care Provider: Care Physician,No Primary Referrals: Berenice David MD [Med Staff - Active Staff] - 3-5 Days Care Physician,No Primary [Primary Care Provider] - Disposition Disposition: Home, Self Care
[2023-03-20 19:19] VITALS: BP 134/74; PULSE 62; RESP 15; TEMP 36.7; O2SAT 98
== END 2023-03-20 19:21 | disposition home or self-care (01) ==
PROVIDERS: Emergency Provider Emergency Medicine; Visit Provider Emergency Medicine
DX: O23.40 Unspecified infection of urinary tract in pregnancy, unspecified trimester (principal); R21 Rash and other nonspecific skin eruption; R51.9 Headache, unspecified; O99.891 Other specified diseases and conditions complicating pregnancy; Z3A.00 Weeks of gestation of pregnancy not specified
CPT/HCPCS: 80053; 81001; 85025; 85610; 85730; 96360; 99283; J7030; A4216

== ENCOUNTER 2023-06-23 09:35 | Inpatient (IN) | payer MEDICAID, SELFPAY ==
--- NOTE | 2023-06-16 12:06 | HP.PCM_ITS ---
History and Physical Date of Admission: 06/23/23 HPI: The patient is a 37 year old female presenting for pre-operative visit. 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 Procedure discussed along with risks, benefits and complications. Other alternatives discussed for management. Consent form signed? Yes. ? ? PAST MEDICAL HISTORY PAST MEDICAL HISTORY Diagnosis Date ? Anemia ? ? Asthma ? ? breast lumps ? ? cause by horse accident ? History of blood transfusion ? ? depression ? ? ? PAST SURGICAL HISTORY PAST SURGICAL HISTORY Procedure Laterality Date ? DELIVERY ONLY ? ? ? PAST SURGICAL HISTORY OF ? ? ? right knee x2 ? PAST SURGICAL HISTORY OF ? ? ? wisdom teeth ? PAST SURGICAL HISTORY OF ? ? ? ectopic (right) ? PAST SURGICAL HISTORY OF ? 07/03/2020 ? 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 ? ? CURRENT MEDICATIONS Current Outpatient Medications Medication Sig Dispense Refill ? EPINEPHrine (EPIPEN 2-KACI) 0.3 mg/0.3 mL auto-injector Inject 0.3 mL intramuscularly as needed. For allergic reaction.Seek emergent medical care immediately after use.Disp:1 2-pakw/regional sales trainer 1 Each 2 ? cetirizine (ZYRTEC) 10 mg tablet Take 1 tablet by mouth once daily as needed. 30 tablet 11 ? Ahrmugfe-Ib-Mxg-Fe-FA ( VITAMIN) tab Take 1 tablet by mouth. ? ? ? Current Facility-Administered Medications Medication Dose Route Frequency Provider Last Rate Last Admin ? albuterol HFA 90 mcg/actuation 2 Puff (PROVENTIL HFA, VENTOLIN HFA) 2 Puff INHALATION q 6 H PRN Berenice David MD ? ? ALLERGIES: Aspirin, Morphine, Benadryl [Diphenhydramine], Contact Metal Agent, and Macrobid [Nitrofurantoin Monohyd/M-Cryst] ? PERSONAL HISTORY: SOCIAL HISTORY Social History ? Tobacco Use ? Smoking status: Never ? Smokeless tobacco: Never Vaping Use ? Vaping Use: Never used Substance Use Topics ? Alcohol use: Not Currently ? Drug use: Never ? FAMILY HISTORY: FAMILY HISTORY FAMILY HISTORY Problem Relation Age of Onset ? other (brain tumor) Mother ? ? Hypertension Mother ? ? Diabetes Father ? ? No Known Problems Sister ? ? No Known Problems Sister ? ? No Known Problems Sister ? ? No Known Problems Sister ? ? No Known Problems Sister ? ? other (down syndrome) Sister ? ? No Known Problems Brother ? ? No Known Problems Brother ? ? Heart Maternal Grandmother ? ? Aneurysm Maternal Grandfather ? ? other (brain tumor and lung tumor) Maternal Grandfather ? ? No Known Problems Paternal Grandmother ? ? Heart Attack Paternal Grandfather ? ? No Known Problems Daughter ? ? other (amperforated anus) Son ? ? No Known Problems Son ? ? No Known Problems Son ? ? No Known Problems Son ? ? No Known Problems Son ? ? ? REVIEW OF SYMPTOMS: GENERAL: denies fevers or chills ENDOCRINOLOGY: has not been on steroids Cardiology : denies palpitations or chest pain Respiratory: denies SOB or cough Hematology: denies history of prolonged bleeding or easy bruising or VTE Allergy: Denies history of personal or family history of allergy to anesthesia ? PHYSICAL EXAMINATION: ? VITALS: Blood pressure 112/72, pulse 88, resp. rate 16, height 5' 10 (1.778 m), weight 279 lb (126.6 kg), last menstrual period 10/02/2022, SpO2 97 %, not currently . ? GENERAL: The patient is well nourished, well hydrated in no acute distress. , The patient is oriented to time, place, and person. NECK: Supple. No lynphadenopathy, normal thyroid, no thyromegaly. LUNGS: Clear to auscultation bilaterally. no wheezes, rhonchi or rales HEART: Regular rate and rhythm, Normal heart sounds, and No murmurs or gallops abd: soft, nontender, gravid ? IMPRESSION: Estimated Date of Delivery: 07/09/23 ? PLAN: The risks/benefits/alternatives and personal involved for the planned delivery were reviewed with the patient. Her questions were answered to her satisfaction and she desires to proceed. Consent was signed. I reviewed with her postop instructions and expectations. ? ? I have reviewed and updated past medical and surgical history, medications and allergies Assessment & Plan Assessment/Plan (1) Advanced maternal age (AMA) in : (2) Previous delivery affecting : (3) History of rupture of uterus: (4) Maternal obesity syndrome in third trimester: (5) BMI 40.0-44.9, adult:
[2023-06-23] VITALS (14 sets, daily range): BP systolic 105–138; BP diastolic 45–112; PULSE 58–85; RESP 14–73; TEMP 36.2–37; O2SAT 96–100; BMI 39.8
--- NOTE | 2023-06-23 | FALS_PTH ---
PATIENT: JUAN ESCOBEDO LOC: [facility] U#:[id number] AGE/SX: 37/F ROOM: WP009 RE06/23/[address]: Dr. Berenice David MD : 1985 BED: 1 DIS: 06/24/2023 SPEC #: [id number] RECD: 06/24/23 09:12 STATUS: TITO REBonny #: [id number] JASON: 06/23/23 00:[address]: Berenice David DEPT: SURGICAL PATHOLOGY RECD BY: Ari Olivares ENTERED: 06/24/23 09:13 SP TYPE: FALL TUBES OTHR DR: No Primary Care Phys Tissues: Fallopian tube Procedures: Surgery Specimen Level II HEADER OPERATION: Tubal ligation PRE-OP DIAGNOSIS: Sterilization TISSUE SUBMITTED: Fallopian tube, fimbria MICROSCOPIC DIAGNOSIS Fallopian tube, salpingectomy: Fimbrial end of fallopian tube with no pathologic change. AM:dre 06/25/2023 MICROSCOPIC DESCRIPTION Slides are reviewed. GROSS DESCRIPTION Received is one container labeled with the patient's name and not further designated. The specimen consists of young-pink soft tissue consistent with fimbrial end fallopian tube measuring 2.0 x 1.2 x 0.5 cm. The specimen is bisected and submitted entirely in one cassette. / HELENA:dre 06/24/2023 TC:5 [facility]: [id number]
[2023-06-23] MEDS: Lactated Ringers 1,000 ML 999 ML IV (10:05)
[2023-06-23 10:35] LABS: Absolute Lymphocyte Count 1.46 X10^3/uL (0.83-4.51); Absolute Neutrophil Count 5.9 X10^3/uL (2.0-7.7); Basophil# 0.02 X10^3/uL; Basophil% 0.3 % (0-1); Eosinophil# 0.07 X10^3/uL; Eosinophils% 0.9 % (0-5); Hematocrit 34.4 % (37-47); Hemoglobin 11.3 g/dL (12.0-15.0); Lymphocyte # 1.46 X10^3/ul (0.83-4.51); Lymphocyte % 18.5 % (19-41); Mean Corp Hgb Conc 32.8 g/dL (32-36); Mean Corpuscular Hgb 30.3 pg (27.0-32.0); Mean Corpuscular Volume 92.2 fL (81-99); Mean Platelet Vol. 11.8 fl (6.2-12.0); Monocyte# 0.43 X10^3/uL; Monocyte% 5.4 % (0-10); NRBC Flagged by Analyzer 0 % (0-5); Neutrophil # 5.88 X10^3/uL (2.7-7.7); Neutrophil % 74.5 % (47-70); Platelet Count 236 K/mm3 (150-450); RBC Distribution Width CV 13.3 % (11.6-14.6); RBC Distribution Width SD 44.8 fl (35.1-43.9); Red Blood Count 3.73 M/mm3 (4.2-5.4); White Blood Count 7.9 K/mm3 (4.4-11.0)
[2023-06-23 11:21] LABS: Syphilis Antibodies Non-reactive
[2023-06-23] MEDS: Lactated Ringers 1,000 ML 150 ML IV (11:22)
[2023-06-23] MEDS: Acetaminophen 500 MG Tablet 1000 MG PO ×2 (11:25→18:02)
--- NOTE | 2023-06-23 11:57 | NURSING ---
pt declining all baby meds and24 hour screenings; pt also states she will sleep with her baby; safe sleep reviewed and pt states she plans on sleeping with this baby as she did with all her babies.
[2023-06-23] MEDS: Sodium Citrate/Citric Acid 30 ML UDC PO (12:20)
[2023-06-23] MEDS: Cefazolin 3 GM in 0.9% Normal Saline (100mL Bag) 100 ML IV (12:28)
--- NOTE | 2023-06-23 13:41 | EX.PCM.OBRPT ---
Maternal Data Information Final RUSTAM: 07/09/23 Gestational age: 37 5/7 Details Operative Information Date of Procedure: 06/23/23 Pre-Operative Diagnosis: previous c/s, previous uterine rupture Post-Operative Diagnosis: same Indications for : Repeat Elective Classification: Scheduled Procedure Type: low transverse (with removal of left tubal fimbria due to adhesions and bleeding) sales operations assistant #1: Chandni Duarte sales operations assistant #2: Jana morelos [email or web address] Type of Anesthesia: Spinal Anesthesiologist: Nathan Bond Special Medications: duramorph Antibiotic Given: Ancef 3 grams IV x1 Drain: Sommer to straight drain Estimated Blood Loss: 700 Fluids Replaced: 1000 Procedure Start Time: 12:52 Procedure Stop Time: 13:28 Time of Delivery: 12:55 Findings Description of Procedure: The patient was taken to the operating room. She was prepped and draped in the dorsal supine position with a leftward tilt. A Pfannenstiel skin incision was made approximately 2 cm above the symphysis pubis and carried through to underlying layer fascia with the scalpel. The fascia was incised incised in the midline and extended laterally with the Wyatt scissors. The fascia was dissected off the rectus muscles anteriorly.. The rectus muscles were in the midline and the peritoneum was entered bluntly. The peritoneal incision was stretched gently ensuring that there was no tearing inferiorly and the bladder blade was placed. The uterine incision was made in a low transverse fashion with the scalpel and extended superiorly and inferiorly with blunt dissection. I made the incision higher on the uterus than average and I did not make it through the very paperthin area of the lower uterine segment that was visible and palpable. However when I did this it is still extended down significantly about 3 and half centimeters on the right side. It did not extend to the uterine vessels. The amniotic membranes were ruptured bluntly and clear amniotic fluid returned. The infant's head was brought to the incision in the flexed position and delivered without difficulty. The remainder of the was delivered with gentle traction and fundal pressure in the standard fashion. The mouth and nares were bulb suctioned. The cord was clamped and cut as the was stimulated. Cord clamping was delayed. The infant was handed off to the waiting nursing staff. The placenta was delivered with fundal massage and gentle traction in the standard fashion. The uterus was exteriorized and cleared of all clots and debris. When the uterus was removed there was some adhesions of the right fimbria to the uterine sidewall and to the infundibulopelvic ligament. When the uterus was placed on stretch and during removal from the peritoneal cavity there was a small amount of bleeding from the edge of the vessels. In order to clamp over the bleeding vessel I had to clamp off the very end of the fimbria. Proximally 1 cm of fimbria was clamped and transected and then I used a free tie to tie off the edge of the bleeding vessel in the fimbria. Excellent hemostasis was noted. Care was taken not to disrupt this for the remainder of the surgery. . The uterine incision was closed with #1 Vicryl in a running locked fashion. A second layer of the same suture was used in an imbricating fashion. I had to use a second layer in order to try to get the lower uterine segment not to tear through. It was very paperthin and the extension on the lateral side was very thin as well. Care was taken to avoid the bladder during this repair. I have serious concerns about another surgery in the future. The incision was examined and was found to be hemostatic. The uterus was placed back into the peritoneal cavity and hemostasis was again confirmed. The rectus muscles were examined and any bleeding was Bovie cauterized. Some Abbie was placed over the uterine incision. The parietal peritoneum and rectus muscles were closed en bloc with an 0 Vicryl running suture. Some Abbie was placed over the rectus muscles. The rectus fascia was examined and any bleeding was Bovie cauterized and the rectus fascia was closed with #1 looped PDS suture in a running standard fashion. The subcutaneous tissue was examining and any bleeding was Bovie cauterized. The subcutaneous tissue was reapproximated with 3-0 Vicryl suture. The skin was closed in a subcuticular fashion. I performed the entire procedure with assistance. There were no qualified residents available for this procedure. Dr. Duarte provided tissue manipulation, assistance with hemostasis and visualization during the procedure.. All sponge, lap, and needle counts were correct. The patient was taken to her room for recovery in a stable condition. Presentation: Positive for Vertex Amniotic Membrane Rupture Type: Artificial Amniotic Fluid Description: Clear Placental Delivery Description: Expressed Placenta Disposition: [facility] Specimen(s) Sent to Pathology: left fimbria Cord Vessel Description: 3 Vessels Cord Entanglement: None A Gender: Female (Irais) (1 minute): 9 (5 minute): 9 Delayed Cord Clamping: Yes Complications Complications: none Admit VTE Documentation VTE Present on Admission: No VTE Mechan Device Prophylaxis: SCD's VTE Pharm Prophylaxis Ordered: Yes
[2023-06-23] MEDS: Oxytocin 15 Units/NS 250ml 15 UNITS/250 ML IV.SOLN 83 UNITS IV (13:58)
[2023-06-23 15:15] LABS: Pathology Specimen OB SEE PATHOLOGY REPORT
[2023-06-23] MEDS: Celecoxib 200 MG Capsule PO (15:20)
[2023-06-23] MEDS: Lactated Ringers 1,000 ML 100 ML IV (17:04)
[2023-06-24] MEDS: Acetaminophen 500 MG Tablet 1000 MG PO ×3 (00:35→12:16)
[2023-06-24] MEDS: SimETHICONE 80 MG Chewable Tablet PO ×2 (00:35→07:00)
[2023-06-24 00:45] VITALS: BP 116/83; PULSE 68; RESP 16; TEMP 36.7; O2SAT 98
[2023-06-24] MEDS: Celecoxib 200 MG Capsule PO ×2 (03:26→14:42)
[2023-06-24 03:35] VITALS: BP 124/72; PULSE 71; RESP 16; TEMP 36.6; O2SAT 97
[2023-06-24 05:16] LABS: Hematocrit 33.1 % (37-47); Hemoglobin 10.4 g/dL (12.0-15.0); Mean Corp Hgb Conc 31.4 g/dL (32-36); Mean Corpuscular Hgb 29.6 pg (27.0-32.0); Mean Corpuscular Volume 94.3 fL (81-99); Mean Platelet Vol. 11.6 fl (6.2-12.0); Platelet Count 236 K/mm3 (150-450); RBC Distribution Width CV 13.4 % (11.6-14.6); RBC Distribution Width SD 46.1 fl (35.1-43.9); Red Blood Count 3.51 M/mm3 (4.2-5.4); White Blood Count 11.2 K/mm3 (4.4-11.0)
--- NOTE | 2023-06-24 07:54 | NURSING ---
Late entry from 0500. Pt has only had urine output of 50 cc's x 2 since garcia removed at 2315 on 06/23/23. RN discussed voiding standards after garcia removal. Pt reports that since her bladder was ruptured previously she has never been able to void large amounts. Pt reports feeling like she is emptying her bladder completely and denies any discomfort or other urinary symptoms.
--- NOTE | 2023-06-24 08:16 | PN_ITS ---
Subjective Subjective patient seen at bedside, doing well. Patient reports good pain control. lochia mild. voiding w/o difficulty. pt requesting dc home today. tolerating regular diet. Objective Data Objective Data Vital Signs: Vital Signs Temp Pulse Resp BP Pulse Ox O2 Del Method 97.9 F 71 16 124/72 H 97 Room Air 06/24/23 03:35 06/24/23 03:35 06/24/23 03:35 06/24/23 03:35 06/24/23 03:35 06/24/23 03:35 Oxygen Delivery Method Room Air Weight: 126 kg Body Mass Index (BMI) 39.8 Intake & Output: Intake and Output for Last 24 Hours 06/22/23 06/23/23 06/24/23 23:59 23:59 23:59 Intake Total 2348.95 / 2348.95 Output Total 2300 / 2300 100 / 100 Balance 48.95 / 48.95 -100 / -100 Lab / Micro Data 06/24/23 04:35 Labs: Laboratory Results - last 24 hr 06/23/23 10:05: WBC 7.9, RBC 3.73 L, Hgb 11.3 L, Hct 34.4 L, MCV 92.2, MCH 30.3, MCHC 32.8, RDW Std Deviation 44.8 H, RDW Coeff of Serenity 13.3, Plt Count 236, MPV 11.8, Immature Gran % (Auto) 0.400, Neut % (Auto) 74.5 H, Lymph % (Auto) 18.5 L, [place] % (Auto) 5.4, Eos % (Auto) 0.9, Baso % (Auto) 0.3, Absolute Neuts (auto) 5.9, Absolute Lymphs (auto) 1.46, Nucleated RBC % 0, Syphilis Total Ab Non- reactive, Blood Type O POSITIVE, Antibody Screen NEGATIVE 06/24/23 04:35: WBC 11.2 H, RBC 3.51 L, Hgb 10.4 L, Hct 33.1 L, MCV 94.3, MCH 29.6, MCHC 31.4 L, RDW Std Deviation 46.1 H, RDW Coeff of Serenity 13.4, Plt Count 236, MPV 11.6 Physical Exam Narrative abd: dressing dry and intact. fundus firm. Const alert and oriented x3 General Appearance: cooperative HEENT normocephalic Neck General: normal visual inspection GI soft to palpation and non-distended GI Narrative: Fundus firm Extremity normal to inspection and no calf tenderness Skin no rashes or lesions noted Neuro oriented x3 and CN's II-XII intact bilaterally Psych mental status grossly normal Assessment & Plan Assessment/Plan (1) Delivery by section: (2) Acute on chronic anemia: PLAN: Plan POD#1 , Doing well Routine care pain mgmt monitor VS ambulation dc home
--- NOTE | 2023-06-24 08:18 | DCINST_ITS ---
Discharge Instructions Diet Discharge Diet: No restrictions Activity May resume sexual activity in: 6-8 weeks Lifting Restrictions: 25 Dressing / Incision Call your doctor if your incision/area has: Continuous Slow Oozing, Sudden Increased Bleeding, Increased Pain/ Swelling, Increased Redness, Foul Smelling Discharge and Swelling at the incision site Call your doctor if you observe: Fever of 101 or Higher, Inability to urinate, Using more than 1 pad per hour and Uncontrolled pain Additional Dressing/Incision Instructions:: remove dressing at 7 days post op- if it becomes saturated prior to that time you may remove it. Let soap and water run over incision sites and dab dry. keep incision clean and dry. Follow Up Care Please Follow Up With: Cathy Shah MD When: 1-2 weeks post of incision check and again at 6 weeks post . [phone] Test Results: Test results from this visit will be discussed in further detail at your follow- up appointment, if applicable. Discharge Plan Admission Admit Date/Time: 06/23/23 09:35 Attending Provider: Berenice David Primary Care Provider: Care Physician,Ema Primary Discharge Orders/Prescriptions Prescriptions: New celecoxib 200 mg Capsule 200 mg PO BID@0330,1530 14 Days Qty: 28 0RF sennosides-docusate sodium [Stool Softener-Stimulant Laxat] 8.6-50 mg Tablet 1 - 2 tab PO DAILY Qty: 0 0RF simethicone 80 mg Tablet,Chewable 80 mg PO PCHS PRN (Reason: Indigestion/stomach pain) Qty: 0 0RF Continued [id number]-[id number] 6-dha 30 mg iron-1mg -200 mg Capsule 1 cap PO DAILY Referrals / Follow Up: Care Physician,No Primary [Primary Care Provider] - Disposition Disposition (needs filled in before D/C Order can be placed): Home, Self Care
--- NOTE | 2023-06-24 08:21 | PCM.DC.BLA ---
Discharge Summary Date of Admission: 06/23/23 Date of Discharge: 06/24/23 Summary: Patient was admitted to [facility] 06/23/2023 for a scheduled repeat section at 37+ weeks gestation she underwent a repeat low transverse section performed by Dr. Berenice David without complication. She had an uncomplicated postoperative day course and requested discharge home on postoperative day 1. She was in stable condition and met discharge criteria. Total time spent [id number] with the patient on day of discharge was less than 30 minutes Meaningful Use Info Meaningful Use Diagnoses (Choose all that apply): None applicable Discharge Plan Admission Admit Date/Time: 06/23/23 09:35 Attending Provider: Berenice David Primary Care Provider: Care Physician,Ema Primary Discharge Orders/Prescriptions Prescriptions: New celecoxib 200 mg Capsule 200 mg PO BID@0330,1530 14 Days Qty: 28 0RF sennosides-docusate sodium [Stool Softener-Stimulant Laxat] 8.6-50 mg Tablet 1 - 2 tab PO DAILY Qty: 0 0RF simethicone 80 mg Tablet,Chewable 80 mg PO PCHS PRN (Reason: Indigestion/stomach pain) Qty: 0 0RF Continued 58-[id number]-[id number] 6-dha 30 mg iron-1mg -200 mg Capsule 1 cap PO DAILY Referrals / Follow Up: Care Physician,No Primary [Primary Care Provider] - Disposition Disposition (needs filled in before D/C Order can be placed): Home, Self Care
[2023-06-24 08:47] VITALS: BP 114/59; PULSE 69; RESP 16; TEMP 36.2
--- NOTE | 2023-06-24 10:39 | CASEMGMT ---
Social Work Assessment Labor and Delivery Unit Patient Address: [address] [place] [address] [place] [address] Phone number: [phone] Date of Referral: 06/23/23 Time of Referral:? 1550 Referred By: Berenice David Date of Intervention: ?06/24/23? Time of Intervention:?929 Reason for Referral:? Hx of SI in 2018, PPD Sw completed chart review and acknowledges social work consult. Sw presented to bedside and introduced self to mother of baby (ROMINA- Claudine) and explained reason for sw involvement at this time. Sw completed psychosocial assessment and asked MOB to complete the [place] Depression Scale. History obtained from: medical records and mother of baby (MOB)??? Household composition: Currently residing in the family home is MOB, FOB, baby girl and their 6 other children: Anurag (12), Nick (11), Triny (9), Cabrera (7), Eric (4, almost 5) and Aaron (1, almost 2). MOB states that their housing is safe and denies any concerns at this time. Patient's parent/guardian status:?MOB states that she and FOB met [employer] dating and have been for almost 14 years. MOB denies any concerns regarding domestic violence or intimate partner violence. Medical History: MOB is 13, para 6- now 6. MOB received care with [facility] during . MOB delivered baby girl via scheduled repeat on 06/23/23. Baby girl, named Miracle Oliveros, was born weighing 7lb 1oz and her apgars were 9 and 9 at one and five minutes of life. MOB states that she is breast feeding and it is going well. Educational Status:?MOB reports that she graduated from high school, and that FOB also graduated from high school and has some college education, but did not graduate. Financial Status: FB is employed outside of the home working for a [employer]. MOB states that he is able to take take two weeks off of work now that baby has been born. Supplies:?Family has everything they need for baby including: crib, car seat, clothes, diapers, wipes and breast pump. Childcare/Caregiver(s):? 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 MOB states that if she ever needs assistance with childcare she has family that lives close who are able to help. Transportation:?? Both parents have a drivers license and reliable transportation. No transportation barriers at this time. Programs/Agencies Involved: ??ROMINA states that she has medicaid insurance ([place]), and was previously receiving food stamps (SNAP) benefits, however she asked for an extension for her income taxes and to this point is still needing to finish them and get them submitted. MOB states that she will not be eligible to receive benefits until that is submitted. MOB states that at this time they are doing ok without SNAP and she is not worried. Sw encouraged ROMINA to finish up her income tax return, now that she has another dependent it will increase the amount of resources that she is eligible for. ? Children Services/Legal Issues:??? ROMINA denies former involvement with Children's Services. No issues or concerns warranting referral at this time. Behavioral Health Issues: ??Mental Health History:??ROMINA states that DEAN does not have a mental health history. ROMINA states that she experienced depression following the of her first three children. ROMINA states that it was the worst after her third, and she attributes that to having three children aged three and under. MOB states that at that time her symptoms looked like she had no interest in doing anything, she did not feel like she was bonding with her baby. MOB states that during that time she lived far away from her family and had limited supports in place. ?Sw asked ROMINA to complete the [place] Depression Scale and her score was a 4. Justina provided education and literature for ROMINA to review. Substance Use History:??ROMINA denies substance use history. Family History:?ROMINA denies family history of mental health and substance use. ? Drug Screens: No urine screens observed during chart review. ?? Family/Social Stressors:?MOB states that the only stressor she has at this time is not due to having a baby. ROMINA states that she has a brother who is causing some drama in her family and it is starting to affect her children. Sw provided support. Support Systems: ROMINA reports that she has a lot of family support here in [place]. MOB states that she and FOB resided in [place] for 12 years, and moved back to [place] two years ago. ROMINA stated it was difficult to reside in [place] without any of her family. Depression/Shaken Baby/Safe Sleeping:?Sw provided education and literature to MOB explaining signs and symptoms of baby blues and depression. Sw explained to MOB that she may be predisposed to experiencing one or the other due to having in the past. MOB expressed understanding. Sw had previously been informed that MOB is telling nursing staff that she does not plan on practicing safe sleep with baby. MOB informed staff that she slept with her other babys and intends to do the same with this baby. Sw educated MOB on ABCs of safe sleep, and provided MOB with handout reiterating safe sleep habits. Sw educated MOB on shaken baby prevention. MOB expressed understanding. ASSESSMENT:? MOB was observed to provide nurturing hands on care to baby during sw assessment. MOB talkative and receptive to sw involvement and support. MOB with history of depression and would benefit from getting connected to mental health professional during her period or touching base regularly with natural supports. MOB has reported that she has no intentions of practicing safe sleep. She was informed of risks associated with not following ABCs of safe sleep. PLAN:? MOB and baby to be discharged when medically ready. ? No other services requested or indicated. Corrie Knox, AUTOMOBILE BODY CUSTOMIZER, GREEN CHAIN PULLER
[2023-06-24] MEDS: Senna/Docusate Sodium 1 Tablet PO (11:05)
[2023-06-24 13:25] VITALS: BP 124/66; PULSE 71; RESP 16; TEMP 36.3
== END 2023-06-24 14:51 | disposition home or self-care (01) | DRG 539 ==
PROVIDERS: Admitting Provider Obstetrics & Gynecology; Referring Provider Obstetrics & Gynecology; Visit Provider Obstetrics & Gynecology
PROC: 10D00Z1 Extraction of Products of Conception, Low, Open Approach (ICD-10-PCS; CPT 59514; principal; 2023-06-23 12:15)
DX: O34.219 Maternal care for unspecified type scar from previous cesarean delivery (principal); E66.9 Obesity, unspecified; O99.214 Obesity complicating childbirth; Z37.0 Single live birth; O99.892 Other specified diseases and conditions complicating childbirth; N73.6 Female pelvic peritoneal adhesions (postinfective); Z3A.37 37 weeks gestation of pregnancy; Z87.59 Personal history of other complications of pregnancy, childbirth and the puerperium
CPT/HCPCS: 59050; 85025; 85027; 86780; 86850; 86900; 86901; 88302; 99221; J7120; G0378; J2405

== ENCOUNTER → 2023-06-26 | Outpatient (CLI) | payer MEDICAID, SELFPAY ==
--- NOTE | 2023-06-26 13:36 | VDLE_ITS ---
Reason For Study: Right leg pain, edema RIGHT GSV is normal. CFV is compressible, spontaneous, phasic, competent and demonstrates normal augmentation. FV is compressible, spontaneous, phasic, competent and demonstrates normal augmentation. POP V is compressible, spontaneous, phasic, competent and demonstrates normal augmentation. T/P Trunk is compressible. PTV is compressible. RT PerV is compressible. Thrombus filled varicose veins noted in the right groin to prox calf. Varicose veins wrap around anterior thigh and run down lateral side of leg. Procedure This is a venous duplex using B-mode, color flow and spectral Doppler. Exam performed in department. A preliminary report was called and/or faxed to Dr. David. VL/Venous Duplex US, Unilateral Interpretation Summary Acute superficial vein thrombosis is noted in right inguinal, thigh, and calf v aricosities. Deep veins of the right lower extremity are patent and compressible segmentally . There is no evidence of right lower extremity deep vein thrombosis. The right great sapheno us vein appears patent and compressible segmentally. Ordering Physician: Berenice David Performed By: Carmen Weiss RVT
== END | disposition home or self-care (01) ==
LOC: CVS 13:33
PROVIDERS: Referring Provider Obstetrics & Gynecology; Visit Provider Obstetrics & Gynecology
DX: M79.604 Pain in right leg (principal); M79.89 Other specified soft tissue disorders; R60.0 Localized edema
CPT/HCPCS: 93971

== ENCOUNTER 2025-06-16 09:53 | Inpatient (IN) | payer MEDICAID, SELFPAY ==
--- NOTE | 2025-06-07 17:00 | HP.PCM_ITS ---
History and Physical Date of Admission: 06/16/25 HPI: The patient is a 39 year old female presenting for pre-operative visit. She is scheduled for , for previous uterine rupture, previous c/s on 06/16/25. Procedure discussed along with risks, benefits and complications. Other alternatives discussed for management. Consent form signed? Yes. ? ? PAST MEDICAL HISTORY PAST MEDICAL HISTORYDiagnosisDate?Anemia??Asthma (HCC)??breast lumps??cause by horse accident?History of blood transfusion??Hx of maternal laceration, 4th degree, currently (HCC)03/21/2021?03/21/2021 Patient states that she had a lot of tearing with her last delivery. She states it was cervical and vaginal and sounds like 4th degree laceration. She had surgery in June 2020 for repair. She states the doctor told her that she would have cervical incompetence if she got again.Patient signed release form to get her delivery operative report sent to us. TKRN? depression? ? ? PAST SURGICAL HISTORY PAST SURGICAL HISTORYProcedureLateralityDate? DELIVERY ONLY??? 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 ? ? CURRENT MEDICATIONS Current Outpatient MedicationsMedicationSigDispenseRefill?FERROUS SULFATE, BULK, MISConce daily.???Vit B Cmplx 3-FA-Vit C-Biotin tabletTake 1 tablet by mouth daily with breakfast.???EPINEPHrine (EPIPEN 2-KACI) 0.3 mg/0.3 mL auto- injectorInject 0.3 mL intramuscularly as needed. For allergic reaction.Seek emergent medical care immediately after use.Disp:1 2-pakw/trainer1 Each2? Vzhbineb-Vl-Tak-Fe-FA ( VITAMIN) tabTake 1 tablet by mouth.???[START ON 06/17/2025] enoxaparin (LOVENOX) 40 mg/0.4 mLInject 0.4 mL subcutaneously once daily. Patient should start on June 17, 2025.30 each1?LancetsUse as directed to check glucose levels up to seven times daily.200 each8?No current facility-administered medications for this visit. ? ? ALLERGIES: Aspirin, Morphine, Benadryl [Diphenhydramine], Contact Metal Agent, and Macrobid [Nitrofurantoin Monohyd/M-Cryst] ? PERSONAL HISTORY: [SOCIAL HISTORY] [SOCIAL HISTORY] Social History Tobacco Use ? Smoking status: Never ? Smokeless tobacco: Never Vaping Use ? Vaping status: Never Used Substance Use Topics ? Alcohol use: Not Currently ? Drug use: Never ? FAMILY HISTORY: FAMILY HISTORY 0 FAMILY HISTORY ProblemRelationAge of Onset?other (brain tumor)Mother??HypertensionMother??DiabetesFather??No Known ProblemsSister??No Known ProblemsSister??No Known ProblemsSister??No Known ProblemsSister??No Known ProblemsSister??other (down syndrome)Sister??No Known ProblemsBrother??No Known ProblemsBrother??HeartMaternal Grandmother??AneurysmMaternal Grandfather??other (brain tumor and lung tumor)Maternal Grandfather??No Known ProblemsPaternal Grandmother??Heart AttackPaternal Grandfather??No Known ProblemsDaughter??other (amperforated anus)Son??No Known ProblemsSon??No Known ProblemsSon??No Known ProblemsSon??No Known ProblemsSon? ? ? REVIEW OF SYMPTOMS: GENERAL: denies fevers or chills ENDOCRINOLOGY: has not been on steroids Cardiology : denies palpitations or chest pain Respiratory: denies SOB or cough Hematology: denies history of prolonged bleeding or easy bruising or VTE Allergy: Denies history of personal or family history of allergy to anesthesia ? PHYSICAL EXAMINATION: ? VITALS: Blood pressure 124/68, pulse 100, resp. rate 16, weight 134.3 kg (296 lb), last menstrual period 09/23/2024, SpO2 99%, not currently . ? GENERAL: The patient is well nourished, well hydrated in no acute distress. , The patient is oriented to time, place, and person. NECK: Supple. No lynphadenopathy, normal thyroid, no thyromegaly. LUNGS: Clear to auscultation bilaterally. no wheezes, rhonchi or rales HEART: Regular rate and rhythm, Normal heart sounds, and No murmurs or gallops abd- soft, nontender, gravid ? IMPRESSION: Estimated Date of Delivery: 07/07/25 w/ h/o previous c/s, previous uterine rupture w/ vesicocervical fistula repair ? PLAN: The risks/benefits/alternatives and personal involved for the planned ea rly term delivery w/ repeat c/s were reviewed with the patient. Her questions were answered to her satisfaction and she desires to proceed. Consent was signed. I reviewed with her postop instructions and expectations. ? Recommend VTE prophylaxis after delivery ? I have reviewed and updated past medical and surgical history, medications and allergies Assessment & Plan Assessment/Plan (1) High-risk , elderly multigravida in third trimester: (2) Traumatic rupture of uterus during labor: (3) Maternal obesity syndrome in second trimester: (4) BMI 40.0-44.9, adult: (5) Advanced maternal age (AMA) in : (6) History of rupture of uterus: (7) Maternal obesity syndrome in third trimester: (8) Previous delivery affecting : (9) History of thrombophlebitis: (10) Superficial varicosities:
[2025-06-16] VITALS (16 sets, daily range): BP systolic 88–150; BP diastolic 59–90; PULSE 61–86; RESP 11–20; TEMP 36.3–36.9; O2SAT 96–100; BMI 42.2; BMI 42.0
[2025-06-16] MEDS: Lactated Ringers 1,000 ML 999 ML IV (10:43)
[2025-06-16 11:07] LABS: Hematocrit 33.8 % (37-47); Hemoglobin 11.7 g/dL (12.0-15.0); Immature Granulocytes Count 0.010 X10^3/uL (0.0-0.0); Mean Corp Hgb Conc 34.6 g/dL (32-36); Mean Corpuscular Volume 89.4 fL (81-99); Mean Platelet Vol. 10.8 fl (6.2-12.0); NRBC Flagged by Analyzer 0 % (0-5); Platelet Count 203 K/mm3 (150-450); RBC Distribution Width CV 13.5 % (11.6-14.6); RBC Distribution Width SD 44.3 fl (35.1-43.9); Red Blood Count 3.78 M/mm3 (4.2-5.4); White Blood Count 6.7 K/mm3 (4.4-11.0)
[2025-06-16] MEDS: Lactated Ringers 1,000 ML 500 ML IV (11:52)
[2025-06-16] MEDS: Cefazolin 1 GM/5 ML Vial 2 GM IV (12:09)
[2025-06-16] MEDS: Lactated Ringers 1,000 ML 1000 ML IV (12:09)
[2025-06-16 12:15] LABS: Syphilis Antibodies Nonreactive (Nonreactive)
[2025-06-16] MEDS: TRANEXAMIC ACID 1,000 MG/10 ML ML 1000 MG IV (12:23)
[2025-06-16] MEDS: Azithromycin 500 MG Vial (SNAP) IV (12:24)
--- NOTE | 2025-06-16 12:59 | PCM.POST.ANE ---
Anesthesia: Postop Eval I Current Vital Signs Temperature: 98 F Pulse Rate: 86 Blood Pressure: 120/71 Respiratory Rate: 16 Pulse Ox: 98 Oxygen Delivery Method: Room Air Assessment Airway patent: Yes Spontaneous unlabored respirations: Yes Mental status: Awake and Calm nausea: No Vomiting: No Anesthesia Complication: No Fluid Hydration Crystalloid volume administer (ml): 1,000 Total IV fluid infused: 1,000 Progress Note Anesthesia document: Postop Eval 1 completed: Yes
--- NOTE | 2025-06-16 13:02 | EX.PCM.OBRPT ---
Assessment & Plan (1) 37 weeks gestation of : (2) Delivery by section: (3) High-risk , elderly multigravida in third trimester: (4) Traumatic rupture of uterus during labor: (5) Maternal obesity syndrome in second trimester: (6) BMI greater than 40: (7) Single live : Maternal Data Information Final RUSTAM: 06/16/25 Gestational age: 37 0/7 Operative Report (OB) Procedure Details Date of Procedure: 06/16/25 Procedure Start Time: 12:35 Procedure Stop Time: 12:57 Time of Delivery: 12:37 Pre-Operative Diagnosis: Repeat Elective Post-Operative Diagnosis: Same as Pre-operative diagnosis Classification: Scheduled Type of Anesthesia: Spinal Antibiotic Given: Ancef 3 grams IV x1 and Zithromax 500 mg/5 mL X1 Drain: Sommer to straight drain Estimated Blood Loss: 800 Fluids Replaced: 1000 cc Findings Description of surgery: The patient was taken to the operating room. She was prepped and draped in the dorsal supine position with a leftward tilt. A Pfannenstiel skin incision was made approximately 2 cm above the symphysis pubis and carried through to underlying layer fascia with the scalpel. The fascia was incised incised in the midline and extended laterally with the Wyatt scissors. The fascia was dissected off the rectus muscles with blunt and sharp dissection. The rectus muscles were in the midline and the peritoneum was entered bluntly. The peritoneal incision was stretched and the bladder blade was placed. The uterine incision was made in a low transverse fashion with the scalpel and extended superiorly and inferiorly with blunt dissection. The amniotic membranes were ruptured bluntly and clear amniotic fluid returned. The 's head was brought to the incision in the flexed position and delivered without difficulty. The remainder of the was delivered with gentle traction and fundal pressure in the standard fashion. The mouth and nares were bulb suctioned. The cord was clamped and cut as the infant was stimulated. Cord clamping was delayed. The infant was handed off to the waiting nursing staff. There were no significant intraperitoneal adhesions. The placenta was delivered with fundal massage and gentle traction in the standard fashion. The uterus was exteriorized and cleared of all clots and debris. The cervix was dilated with a ring forcep. The uterine incision was closed with #1 Vicryl in a running locked fashion. A uodfgd-oz-rugrn suture was needed there is sinus in the midline of the incision to obtain hemostasis. The incision was examined and was found to be hemostatic. The uterus was placed back into the peritoneal cavity and hemostasis was again confirmed. The rectus muscles were examined and any bleeding was Bovie cauterized. The parietal peritoneum and rectus muscles were closed en bloc with an 0 Vicryl running suture. Hemablast was placed over every layer. The rectus fascia was examined and any bleeding was Bovie cauterized and the rectus fascia was closed with 1 Vicryl suture in a running standard fashion. The subcutaneous tissue was examining and any bleeding was Bovie cauterized. The subcutaneous tissue was reapproximated with 3-0 Vicryl suture. The skin was closed in a subcuticular fashion by Dr. Redman. I performed the remainder of the procedure with assistance. No qualified residents were available for the procedure All sponge, lap, and needle counts were correct. The patient was taken to her room for recovery in a stable condition. Surgical findings: Normal placenta and three-vessel cord, vigorous female in vertex presentation. Normal ovaries bilaterally. Majority of right fallopian tube absent from previous surgery left loping tube normal Presentation: Vertex Amniotic Membrane Rupture Type: Artificial Amniotic Fluid Description: Clear Placental Delivery Description: Expressed Placenta Disposition: [facility] Specimen collected: No Cord Vessel Description: 3 Vessels Cord Entanglement: None Infant A gender: Female (1 minute): 8 (5 minute): 9 Delayed Cord Clamping: Yes Online Publisher fiber glass worker: Yes Javascript Web Developer: Cathy Shah Tasks completed by social science research assistant: Closing, Altering tissue and Hemostasis: Tie Additional litigation assistant?: No Complications Complications: No Admit VTE Documentation VTE Present on Admission: No VTE Mechan Device Prophylaxis: SCD's VTE Pharm Prophylaxis Ordered: Yes
--- NOTE | 2025-06-16 13:07 | POSTOPAN2_ITS ---
Anesthesia Postop Eval I Sum Postop Eval Completion status Anesthesia document: Postop Eval 1 completed: Yes Anesthesia Postop Eval I Summary Anesthesia Postop Eval I Summary: Anesthesia Postop Eval I: Assessment Summary Airway patent Yes 06/16/25 12:59 ENVIRONMENTAL PROTECTION ECONOMIST.MDOT Spontaneous unlabored Yes 06/16/25 12:59 ENVIRONMENTAL PROTECTION ECONOMIST.MDOT respirations Mental status Awake,Calm 06/16/25 12:59 ENVIRONMENTAL PROTECTION ECONOMIST.MDOT nausea No 06/16/25 12:59 ENVIRONMENTAL PROTECTION ECONOMIST.MDOT Vomiting No 06/16/25 12:59 ENVIRONMENTAL PROTECTION ECONOMIST.MDOT Anesthesia Postop Eval I: Fluid Summary Crystalloid volume administer 1,000 06/16/25 12:59 ENVIRONMENTAL PROTECTION ECONOMIST.MDOT (ml) Colloids volume administered ( ml) Blood Product volume administered (ml) Total IV fluid infused 1,000 06/16/25 12:59 ENVIRONMENTAL PROTECTION ECONOMIST.MDOT Anesthesia Postop Eval I: Summary Notes Anesthesia Complication No 06/16/25 12:59 ENVIRONMENTAL PROTECTION ECONOMIST.MDOT Anesthesia Complication Comment: Post-operative progress note Anesthesia: Postop Eval II Evaluation Mental status: Awake and Calm Pain Level: 0 nausea: No Vomiting: No Complications Anesthesia Complication: No
--- NOTE | 2025-06-16 13:07 | PCM.POSTANE2 ---
Anesthesia Postop Eval I Sum Postop Eval Completion status Anesthesia document: Postop Eval 1 completed: Yes Anesthesia Postop Eval I Summary Anesthesia Postop Eval I Summary: Anesthesia Postop Eval I: Assessment Summary Airway patent Yes 06/16/25 12:59 BIBLE [email or web address].[email or web address] Spontaneous unlabored Yes 06/16/25 12:59 BIBLE READER.MDOT respirations Mental status Awake,Calm 06/16/25 12:59 BIBLE READER.MDOT nausea No 06/16/25 12:59 BIBLE READER.MDOT Vomiting No 06/16/25 12:59 BIBLE READER.MDOT Anesthesia Postop Eval I: Fluid Summary Crystalloid volume administer 1,000 06/16/25 12:59 BIBLE READER.MDOT (ml) Colloids volume administered ( ml) Blood Product volume administered (ml) Total IV fluid infused 1,000 06/16/25 12:59 BIBLE READER.MDOT Anesthesia Postop Eval I: Summary Notes Anesthesia Complication No 06/16/25 12:59 BIBLE READER.MDOT Anesthesia Complication Comment: Post-operative progress note Anesthesia: Postop Eval II Evaluation Mental status: Awake and Calm Pain Level: 0 nausea: No Vomiting: No Complications Anesthesia Complication: No
[2025-06-16] MEDS: Oxytocin 15 Units/NS 250ml 15 UNITS/250 ML IV.SOLN 83 UNITS IV (15:16)
[2025-06-16] MEDS: 0.9% Saline Lock 10 ML Syringe IV (21:39)
[2025-06-17 00:35] VITALS: BP 135/72; PULSE 79; RESP 16; TEMP 36.6; O2SAT 97
--- NOTE | 2025-06-17 00:45 | NURSING ---
Sommer catheter emptied at 0045 for 900ml. Educated pt on importance of removing catheter, pt declined to have catheter removed at this time.
--- NOTE | 2025-06-17 02:00 | NURSING ---
Pt shaking and complaining of pain in abdomen 05/21. This RN and pts assisted pt from recliner to bed. Pt requesting PRN dilaudid at this time, refusing scheduled tylenol. Educated on importance of using other PRN medications. Pt not wanting to take oxycodone at this time. Pt also refusing lovenox-educated on importance of medication and benefits of it. Pt reports that she did have a blood clot after last delivery and would need to talk to her about the medication before taking it.
[2025-06-17] MEDS: 0.9% Saline Lock 10 ML Syringe IV (02:09)
[2025-06-17 04:23] VITALS: BP 130/75; PULSE 78; RESP 16; TEMP 36.8; O2SAT 98
--- NOTE | 2025-06-17 05:44 | PCM.PN.OB ---
Subjective Subjective Denies complaints. Objective Data Objective Data Vital Signs: Vital Signs Temp Pulse Resp BP Pulse Ox O2 Del Method 98.3 F 78 16 130/75 H 98 Room Air 06/17/25 04:23 06/17/25 04:23 06/17/25 04:23 06/17/25 04:23 06/17/25 04:23 06/17/25 04:23 Oxygen Delivery Method Room Air Weight: 293 lb 3.437 oz Body Mass Index (BMI) 42.0 Intake & Output: Intake and Output for Last 24 Hours 06/15/25 06/16/25 06/17/25 23:59 23:59 23:59 Intake Total 2450 / 2450 Output Total 2250 / 2250 900 / 900 Balance 200 / 200 -900 / -900 Lab / Micro Data 06/16/25 10:55 Labs: Laboratory Results - last 24 hr 06/16/25 10:55: WBC 6.7, RBC 3.78 L, Hgb 11.7 L, Hct 33.8 L, MCV 89.4, MCH 31.0, MCHC 34.6, RDW Std Deviation 44.3 H, RDW Coeff of Serenity 13.5, Plt Count 203, MPV 10.8, Immature Gran % (Auto) 0.200, Neut % (Auto) 70.6 H, Lymph % (Auto) 20.3, [place] % (Auto) 6.9, Eos % (Auto) 1.7, Baso % (Auto) 0.3, Absolute Neuts (auto) 4.7, Absolute Lymphs (auto) 1.35, Nucleated RBC % 0, Syphilis Total Ab Nonreactive, Blood Type O POSITIVE, Antibody Screen NEGATIVE Micro: Microbiology 06/16/25 10:00 Urine, Clean Catch Chlamydia/Neisseria (PCR) - Final Physical Exam Const alert, oriented x3 and no apparent distress HEENT normocephalic Chest inspection of chest normal GI soft to palpation, non-tender and non-distended GI Narrative: fundus firm, mid & below umbilicus Incision - bandage c/d/i Extremity normal to inspection and no calf tenderness Assessment & Plan (1) History of thrombophlebitis: COMMENT: POD#1 (2) BMI greater than 40: (3) Delivery by section: (4) Acute on chronic anemia: PLAN: Plan Heme - HDS, await am CBC ID - AF, no signs infection Pain - transition to oral medications (plan discussed with patient) GI/GI - no issues Continue lovenox as with with multiple risk factors for VTE
--- NOTE | 2025-06-17 06:54 | NURSING ---
At 0605 pt initiated feeding baby and did not want this RN to draw ordered CBC at this time. Notified pt that after baby was done to call this RN to draw lab work. Pt did not call out after about 45 minutes. This RN went into room and pt was sleeping in bed. Pts requesting to come back later to draw CBC so pt can sleep. Dr. Gerald gotti.
[2025-06-17 08:37] VITALS: BP 135/87; PULSE 82; RESP 16; TEMP 36.1; O2SAT 98
--- NOTE | 2025-06-17 09:21 | NURSING ---
Phone call placed to Dr. Duarte. Pt c/o of pain in left thigh, feels like the pain the last time she got the blood clot. RN noted reddness and warmth following vein. Plan is to order lower extremity doppler.
--- NOTE | 2025-06-17 09:24 | VDLE_ITS ---
Reason For Study Reason For Study: HX DVT/SVT / BLE PAin RIGHT LEFT GSV is normal. LT Anterior ASV branch of SFJ is NONCOMPRESSIBLE in CFV is compressible, spontaneous, phasic, competent portions at prox thigh and proximal to SFJ. and demonstrates normal augmentation. Intraluminal echoes are noted within the vessel. FV is compressible, spontaneous, phasic, competent Finding is consistent with ACUTE SVT. Vessel is very and demonstrates normal augmentation. tortuous. POP V is compressible, spontaneous, phasic, competent GSV is normal. and demonstrates normal augmentation. CFV is compressible, spontaneous, phasic, competent, T/P Trunk is compressible. and demonstrates normal augmentation. PTV is compressible. FV is compressible, spontaneous, phasic, competent RT PerV is compressible. and demonstrates normal augmentation. Procedure POP V is compressible, spontaneous, phasic, competent This is a venous duplex using B-mode, color flow and and demonstrates normal augmentation. spectral Doppler. T/P Trunk is compressible. Exam performed portable in patient room. PTV is compressible. The exam was diagnostic. LT PerV is compressible. A preliminary report was called and/or faxed to [facility]. VL/Venous Duplex US - [place] Extrem Interpretation Summary Acute superficial vein thrombosis noted in the left thigh accessory saphenous v ein. Deep veins of the bilateral lower extremities are patent and compressible segme ntally. There is no evidence of bilateral lower extremity deep vein thrombosis. The bilateral great saphenous veins appea r patent and compressible segmentally. Ordering Physician: Chandni Duarte Referring Physician: Berenice David Performed By: Reilly Moon RVT
[2025-06-17] MEDS: Senna/Docusate Sodium 1 Tablet PO (09:47)
[2025-06-17 13:14] VITALS: BP 127/62; PULSE 84; RESP 16; TEMP 36.5; O2SAT 97
[2025-06-17 19:35] VITALS: BP 129/82; PULSE 89; RESP 18; TEMP 36.6; O2SAT 96
[2025-06-18 02:50] VITALS: BP 137/87; PULSE 85; RESP 16; TEMP 36.1; O2SAT 95
[2025-06-18 08:35] VITALS: BP 130/82; PULSE 84; RESP 18; TEMP 36.1; O2SAT 95
[2025-06-18] MEDS: Senna/Docusate Sodium 1 Tablet PO (10:15)
--- NOTE | 2025-06-18 11:05 | PCM.PN.OB ---
Subjective Subjective Pain controlled Objective Data Objective Data Vital Signs: Vital Signs Temp Pulse Resp BP Pulse Ox O2 Del Method 97.0 F L 84 18 130/82 H 95 Room Air 06/18/25 08:35 06/18/25 08:35 06/18/25 08:35 06/18/25 08:35 06/18/25 08:35 06/18/25 08:35 Oxygen Delivery Method Room Air Weight: 293 lb 3.437 oz Body Mass Index (BMI) 42.0 Intake & Output: Intake and Output for Last 24 Hours 06/16/25 06/17/25 06/18/25 23:59 23:59 23:59 Intake Total 2450 / 2450 Output Total 2250 / 2250 1500 / 1500 Balance 200 / 200 -1500 / -1500 Lab / Micro Data 06/16/25 10:55 Micro: Microbiology 06/16/25 10:00 Urine, Clean Catch Chlamydia/Neisseria (PCR) - Final Physical Exam Const alert, oriented x3 and no apparent distress HEENT normocephalic GI soft to palpation, non-tender and non-distended GI Narrative: fundus firm, mid & below umbilicus Incision - bandage c/d/i Extremity normal to inspection and no calf tenderness Assessment & Plan (1) History of thrombophlebitis: COMMENT: POD#2 (2) Delivery by section: PLAN: Plan D/c home Lovenox & oxycodone prescribed
--- NOTE | 2025-06-18 11:11 | PCM.DC.SUM ---
Providers Date of Admission: 06/16/25 Primary Care Physician: Ema Primary Care Phys Reason For Visit: SCHEDULED /CSECTION DELIVERY Diagnosis Discharge Diagnosis (1) History of thrombophlebitis: Status: Acute Code(s): Z86.72 - Personal history of thrombophlebitis (2) Delivery by section: Status: Acute Plan D/c home Lovenox & oxycodone prescribed Medications at Discharge Home Medications vit 25-iron fum 30 mg iron-folate no6 1 mg-dha 200 mg capsule 1 cap PO DAILY 09/20/21 ferrous sulfate 325 mg (65 mg iron) tablet (Feosol) 325 mg PO BID anemia 06/16/25 acetaminophen 500 mg tablet 1,000 mg (2 x 500 mg) PO Q6H #0 tabs 06/18/25 enoxaparin 40 mg/0.4 mL subcutaneous syringe 40 mg (0.4 mL) subcut Q12H #8 mL 06/18/25 oxycodone 5 mg tablet 5 mg PO Q8H PRN Pain Score 4-10 7 days #20 tabs 06/18/25 Hospital Course Operations section Procedures None Summary of Care Provided Minutes Spent on Discharge: 15 Weight / BMI Weight Weight: 293 lb 3.437 oz Body Mass Index (BMI) 42.0 ABG / Lab / Microbiology Data 06/16/25 10:55 Microbiology: Microbiology 06/16/25 10:00 Urine, Clean Catch Chlamydia/Neisseria (PCR) - Final D/C Instructions Discharge Activity: May Shower May resume sexual activity in: 6 weeks Weight Bearing Status: Weight bearing as tolerated Call your doctor if your incision/area has: Continuous Slow Oozing, Sudden Increased Bleeding, Increased Pain/ Swelling, Increased Redness, Foul Smelling Discharge and Swelling at the incision site Call your doctor if you observe: Fever of 101 or Higher, Coldness, Increased Pain, Change in Color, Inability to urinate, Inability to have a bowel movement, Using more than 1 pad per hour, Shortness of breath, Dizziness, Fainting spells, Chest pain, Increased palpitations (irregular heartbeat), Calf discomfort and Uncontrolled pain Suture Line Care: Avoid Pulling/Pushing and Avoid Pinching/Bending Remove Dressing in: 1 week Cleanse incision/area with: Soap & Water DC O2, CPAP, BIPAP Needs Home O2 Discharge instructions: No Please Follow Up With: Chandni Duarte MD When: Follow up in 2 and 6 weeks for visits. Meaningful Use Info Meaningful Use Meaningful Use Diagnoses (Choose all that apply): None applicable Discharge Plan Admission Admit Date/Time: 06/16/25 09:53 Primary Reason for Your Visit: section Attending Provider: Berenice Dvaid Primary Care Provider: Care Physician,No Primary Discharge Orders/Prescriptions Prescriptions: New acetaminophen 500 mg Tablet 1,000 mg PO Q6H Qty: 0 0RF oxycodone 5 mg Tablet 5 mg PO Q8H PRN (Reason: Pain Score 4-10) 7 Days Qty: 20 0RF enoxaparin 40 mg/0.4 mL Syringe 40 mg subcut Q12H Qty: 8 0RF Continued 88-mlca-yitzmx 6-dha 30 mg iron-1mg -200 mg Capsule 1 cap PO DAILY ferrous sulfate [Feosol] 325 mg (65 mg iron) tablet 325 mg PO BID Referrals / Follow Up: Care Physician,No Primary [Primary Care Provider] - Disposition Disposition (needs filled in before D/C Order can be placed): Home, Self Care
--- NOTE | 2025-06-18 11:53 | CASEMGMT ---
Social Work Assessment Labor and Delivery Unit Patient Address: [address] [place] [address] [place] [address] Phone number: [phone] Date of Referral: 06/17/25 Time of Referral:? 15:53 Referred By: Chandni Duarte Date of Intervention: 06/18/25? Time of Intervention: 11:53 Reason for Referral: Mental Health/History of PPD and anxiety History obtained from: Medical records and mother of baby (MOB). ? Household composition: MOB, father of baby (FOB; Alvin, age 49) and their children: son Anurag, age 14, son Nick, age 13, daughter Triny, age 11, son Cabrera, age 9, son Eric, age 6, son Jose, age 3, daughter Miracle, turns 2 this week and daughter Stacey, born on 06/16/25. Patient's parent/guardian status:? ?MOB and FOB have been together for 17 years and have been for 16 years. MOB described a positive and supportive relationship with the FOB and denied any domestic violence. Medical History: ?: 14, para, now 7. MOB received care through [facility] beginning at 7 weeks and 6 days and visits were observed to be mostly regular with a few larger than typical gaps in between appointments. Apgars: 8 and 9. Weight: 6lbs, 15oz. Marketing Services Rep: Dr. Faby Burr. Educational Status: MOB denied any issues or concerns with reading or writing. MOB earned her high school diploma and the FOB attended some college. Financial Status: MOB reported the household income is sufficient to meet the needs of her family at this time. MOB is a [id number]-[id number] mom (SAHM) and the FOB is currently employed full-time as a materials director. Supplies: MOB reported she has all of the supplies she needs for baby at this time including but not limited to: Car seat, pack-n-play, diapers, bottles, breast pump and clothing. Childcare/Caregiver(s): MOB identified herself as the primary caregiver for baby as a SAHM. FOB will assist with childcare during the times he is home. ? Transportation: MOB reported she and the FOB are both licensed drivers with reliable vehicles to take baby to and from all medical appointments. No transportation issues identified. MOB reported she has a 15-passenger van and the FOB has his own vehicle he uses to get to and from work. The van is currently in the process of getting new brakes. ? Programs/Agencies Involved: Medicaid and SNAP through the department of [employer]. ?? Children Services/Legal Issues:? ROMINA denied any history of Children Services and/or legal involvement either with herself and/or with the FOB. Behavioral Health Issues: Denied Mental Health History:? ROMINA has a history of PPD and anxiety. MOB reported the PPD and anxiety were only with her first two children as the MOB and FOB were living in [place], where the FOB?s family lives and MOB felt like she lacked support from the FOB which led to PPD and anxiety.? MOB also reported her oldest child was in the NICU for over 10 days after being born and required numerous surgeries which was stressful. MOB denied any PPD and/or anxiety since moving back to the . MOB reported she has never been on medication to treat symptoms and denied any MH history with the FOB. ?Psychologist Experimental administered the [place] Depression Scale (EPDS). MOB?s score was 3. Psychologist Experimental provided education to the MOB about the score which the MOB verbalized she understood. Substance Use History: MOB denied any previous or current substance abuse history either with herself or with the FOB. Family History: MOB denied any knowledge of family history of mental health and/or substance abuse on either her side of the family or on the side of the FOB. ? Drug Screens: None administered during this admission for the MOB or baby. ?? Family/Social Stressors: MOB denied any current family/social stressors. Support Systems: Ample. MOB identified her biggest support as the FOB, their local mormon, MOB?s 2 sisters and 2 brothers. MOB reported her mother is and MOB has a relationship with her father, his new and their children however MOB stated she is more of a support to her father than her father is to her. MOB stated the FOB?s side of the family all live in [facility] [facility] and MOB stated she does not consider them to be a support however the FOB does. Depression/Shaken Baby/Safe Sleeping: Psychologist Experimental provided verbal and written education on PPD, increased risk factors, Safe Sleeping and Shaken Baby.? MOB verbalized an understanding. ??? ASSESSMENT:? MOB provided consent to social work visit. Upon arrival, MOB?s oldest son, Anurag, was present and was observed as being very helpful to the MOB. MOB reported that yesterday was ?rough? because the MOB has arranged for childcare with her niece while in the hospital with and the niece backed out, leaving the FOB needing to be home more with the other children instead of at the hospital with her. MOB observed positive interaction between the MOB and Anurag as well as toward whom the MOB was holding. MOB was observed to be very gentle with , at ease and attentive to ?s needs. The FOB called to check on the MOB while socially responsible investment adviser was there and was planning a visit for today as well as getting ready for discharge. MOB did report that she has a history of co-sleeping with her children. Psychologist Experimental provided education on the dangers of co-sleeping which did not appear to have an impact on the MOB. Psychologist Experimental also provided MOB with a written handout for the [facility] which MOB accepted but also seemed to lack any real interest in (for a primary care physician). MOB stated she only goes to the doctor when sick and typically goes [id number]. Psychologist Experimental provided education on the benefits of being connected with a PCP as well as the importance of preventative visits and having someone dedicated to getting to know her as a patient and her overall medical care. There was a time during the assessment at which point Colle left the room to go get drinks and a snack that socially responsible investment adviser was able to meet with the MOB alone. MOB denied any history of DV, unmanaged mental health and or drug or alcohol abuse either with herself and/or the FOB. MOB denied any needs/concerns at this time. ?? Safe Plan of Care for related to substance use: N/A; not needed. ? PLAN:? Baby to be discharged home.? ironworker machine operator also provided written information on depression, depression resources and Help Me Grow. ?No other services requested or indicated. Rahel Gimenez, SCREEN TENDER, FACILITIES MANAGER
[2025-06-18 13:24] VITALS: BP 136/75; PULSE 77; RESP 18; TEMP 35.7; O2SAT 96
--- NOTE | 2025-06-18 13:34 | NURSING ---
Reinforced how to self-administer Lovenox including site, technique, and the importance of rotating sites. Patient has experience with this and expresses understanding.
--- NOTE | 2025-06-22 11:45 | NURSING ---
F/up phone call attempted, no ans, LVM
== END 2025-06-18 13:55 | disposition home or self-care (01) | DRG 540 ==
PROVIDERS: Admitting Provider Obstetrics & Gynecology; Referring Provider Obstetrics & Gynecology; Visit Provider Obstetrics & Gynecology
PROC: 10D00Z1 Extraction of Products of Conception, Low, Open Approach (ICD-10-PCS; CPT 59514; principal; 2025-06-16 11:45)
DX: O34.211 Maternal care for low transverse scar from previous cesarean delivery (principal); O99.214 Obesity complicating childbirth; O99.02 Anemia complicating childbirth; Z37.0 Single live birth; Z3A.37 37 weeks gestation of pregnancy; Z87.59 Personal history of other complications of pregnancy, childbirth and the puerperium
CPT/HCPCS: 59025; 59050; 85025; 86780; 86850; 86900; 86901; 87491; 87591; 93970; 99221; A4216; G0378